=== PATIENT | female | born 1945 | race Caucasian/White ===

== ENCOUNTER 2017-01-17 13:25 | Emergency (ER) | payer OTHER, BC ==
[2017-01-17 13:32] VITALS: BP 160/52; PULSE 68; TEMP 98.1; BMI 35.5
--- NOTE | 2017-01-17 14:10 | PDOC ---
History of Present Illness - General History Source: Patient Exam Limitations: No Limitations - History of Present Illness Initial Comments: 01/17/17 14:14 The patient is a 71 year old female presenting with her , with a significant past medical history of Hypertension, diabetes, chronic renal insufficiency, MVP, hypothyroidism, who presents to the emergency department with left eye burning since yesterday. She also reports swelling, exudate and itchiness from the eye. On presentation the eye is not red and there is no current itching. It is noted that the patient's left eye is 20/30. She denies any blurry vision or any change in vision. The patient denies headache and dizziness. Denies fever, chills, nausea, vomit, diarrhea and constipation. Allergies: Doclifenac Past surgical history: LAMINECTOMY-1970, LEFT KNEE ARTHROSCOPY-10/09, LUNG NODULE REMOVED-01/2013 Social history: No alcohol, tobacco or drug use reported <Jozef Rene - Last Filed: 01/17/17 14:14> <Jerad Sandoval - Last Filed: 01/17/17 19:01> - General Chief Complaint: Eye Problem Stated Complaint: LEFT EYE BURNING, ITCHY, FB SENSATION Time Seen by Provider: 01/17/17 14:09 Past History <Jozef Rene - Last Filed: 01/17/17 14:14> - Past Medical History Anemia: No Asthma: No Cancer: Yes (LEFT LUNG NODULE) Cardiac Disorders: Yes (MVP, PALPITATIONS) CVA: No COPD: No CHF: No Dementia: No Diabetes: Yes (NIDDM-DX 2012) GI Disorders: Yes (GERD) Disorders: Yes (NIGHT FREQUENCY) HTN: Yes Hypercholesterolemia: Yes (DIET CONTROLLED) Liver Disease: No Seizures: No Thyroid Disease: Yes (HYPOTHYROIDISM) - Surgical History Abdominal Surgery: No Appendectomy: No Cardiac Surgery: No Cholecystectomy: Yes (LAP CHOLEY-10/2003) Lung Surgery: Yes (LUNG NODULE REMOVED-01/2013) Neurologic Surgery: No Orthopedic Surgery: Yes (LAMINECTOMY-1970, LEFT KNEE ARTHROSCOPY-10/09) - Psycho/Social/Smoking Cessation Hx Anxiety: No Suicidal Ideation: No Smoking History: Former smoker Have you smoked in the past 12 months: No Number of Cigarettes Smoked Daily: 20 If you are a former smoker, when did you quit?: 1964 Information on smoking cessation initiated: No Hx Alcohol Use: No Drug/Substance Use Hx: No Substance Use Type: None Hx Substance Use Treatment: No <Jerad Sandoval - Last Filed: 01/17/17 19:01> - Past Medical History Allergies/Adverse Reactions: Allergies Allergy/AdvReac Type Severity Reaction Status Date / Time diclofenac AdvReac ELEVATED Verified 01/17/17 13:28 LIVER ENZYMES Home Medications: Ambulatory Orders Folic Acid - 1 mg PO DAILY 08/13/14 Levothyroxine [Synthroid -] 75 mcg PO DAILY 08/13/14 Metformin HCl [Metformin HCl ER] 500 mg PO BID 08/13/14 Metoprolol Tartrate [Lopressor -] 25 mg PO BID 08/13/14 Ciprofloxacin 0.3% Eye Drops [Ciloxan 0.3% Eye Drops -] 4 drop OU Q4H #1 bottle 01/17/17 Ibuprofen 400 mg PO ASDIR 01/17/17 Review of Systems - Review of Systems Able to Perform ROS?: Yes Comments:: 01/17/17 14:15 GENERAL/CONSTITUTIONAL: No fever or chills. No weakness. HEAD, EYES, EARS, NOSE AND THROAT: +Left eye burning, swelling and itchiness. No change in vision. No ear pain or discharge. No sore throat. CARDIOVASCULAR: No chest pain or shortness of breath RESPIRATORY: No cough, wheezing, or hemoptysis. GASTROINTESTINAL: No nausea, vomiting, diarrhea or constipation. GENITOURINARY: No dysuria, frequency, or change in urination. MUSCULOSKELETAL: No joint or muscle swelling or pain. No neck or back pain. SKIN: No rash NEUROLOGIC: No headache, vertigo, loss of consciousness, or change in strength/ sensation. ENDOCRINE: No increased thirst. No abnormal weight change HEMATOLOGIC/LYMPHATIC: No anemia, easy bleeding, or history of blood clots. ALLERGIC/IMMUNOLOGIC: No hives or skin allergy. <Jozef Rene - Last Filed: 01/17/17 14:14> *Physical Exam - Vital Signs Last Vital Signs Temp Pulse Resp BP Pulse Ox 98.1 F 68 18 160/52 98 01/17/17 13:25 01/17/17 13:25 01/17/17 13:25 01/17/17 13:25 01/17/17 13:25 - Physical Exam Comments: 01/17/17 14:16 GENERAL: Awake, alert, and fully oriented, in no acute distress HEAD: No signs of trauma, normocephalic, atraumatic EYES: +Left eye exudate. PERRLA, EOMI, sclera anicteric, conjunctiva clear ENT: Auricles normal inspection, hearing grossly normal, nares patent, oropharynx clear without exudates. Moist mucosa NEUROLOGICAL: Cranial nerves II through XII grossly intact. Normal speech, normal gait, no focal sensorimotor deficits SKIN: Warm, Dry, normal turgor, no rashes or lesions noted. <Jozef Rene - Last Filed: 01/17/17 14:14> - Vital Signs Last Vital Signs Temp Pulse Resp BP Pulse Ox 98.1 F 68 18 160/52 98 01/17/17 13:25 01/17/17 13:25 01/17/17 13:25 01/17/17 13:25 01/17/17 13:25 <Jerad Sandoval - Last Filed: 01/17/17 19:01> *DC/Admit/Observation/Transfer - Attestations Scribe Attestion: 01/17/17 14:16 Documentation prepared by Jozef Rene, acting as biomedical field service engineer for Jerad Sandoval MD <Jozef Rene - Last Filed: 01/17/17 14:14> - Discharge Dispostion Admit: No <Jerad Sandoval - Last Filed: 01/17/17 19:01> Diagnosis at time of Disposition: Hordeolum, Conjunctivitis - Discharge Dispostion Disposition: HOME Condition at time of disposition: Stable - Prescriptions Prescriptions: Ciprofloxacin 0.3% Eye Drops [Ciloxan 0.3% Eye Drops -] 4 drop OU Q4H #1 bottle - Patient Instructions Printed Discharge Instructions: DI for Conjunctivitis, DI for Hordeolum Additional Instructions: also do warm moist compresses Follow up with your Opthalmologist and or PMD.
== END 2017-01-17 14:38 | disposition home or self-care (01) ==
LOC: FER 13:25
DX: H00.016 Hordeolum externum left eye, unspecified eyelid (principal); H11.9 Unspecified disorder of conjunctiva; I10 Essential (primary) hypertension; E11.9 Type 2 diabetes mellitus without complications; N28.9 Disorder of kidney and ureter, unspecified; E03.9 Hypothyroidism, unspecified; I34.1 Nonrheumatic mitral (valve) prolapse; Z85.118 Personal history of other malignant neoplasm of bronchus and lung
CPT/HCPCS: 99283-25

== ENCOUNTER 2018-08-06 18:31 | Observation (INO) | payer OTHER, BC ==
--- NOTE | 2018-08-06 19:11 | PDOC ---
Attending Attestation - Resident Resident Name: Zenaida Robertson - HPI HPI: 08/06/18 20:41 Pt presents to the ED complaining of substernal chest pressure and upper back pain. Also complains of nausea and lighthedness. Had one episode of emesis. also reports diaphoresis and nausea. 08/06/18 20:51 - Physicial Exam PE: 08/06/18 20:51 Agree with resident exam. Patient is alert and oriented and in no acute distress. Lungs are clear. Heart: regular rate and rhythm. Abdomen: soft, non tender, non distended. Neuro: Normal mood and affect. AA ox 3, CN 2-12 grossly intact. 08/06/18 20:55 - Medical Decision Making 08/06/18 20:52 Pt presents to the Ed complaining of chest pain. Symptoms are concerning for ACS. HEART score is 6. EKG shows no evidence of ischemia. Initial troponin is negative. Will admit to medicine for rule out ACS. <Rita Campbell - Last Filed: 08/06/18 20:51> - HPI HPI: 08/06/18 21:02 The patient is a 72-year-old female with past medical history of L. lung nodule , MVP, NIDDM-DX 2012, GERD, HTN, HLD, hypothyroidism presents to the emergency department with lightheadedness and chest pressure. The patient states she was at an art class when an acute onset of lightheadedness presented accompanied with strangeness sensation to the body, diaphoresis (resolved) and chills ( resolved) and chest pressure. The patient reports the chest pressure initially presented to the mid-chest that gradually radiated to the back. The patient states she had a single episode of nonbloody-bilious emesis at home. The patient reports en route EMS gave the patient medication, with reported relief. Denies shortness of breath or respiratory concerns. Allergies: diclofenac Surgical history: Lap Choley (10/2003), Lung nodule removed 01/2013), Laminectomy 1970, and L. knee arthroscopy 10/09). PCP: Chanell Reyes - Medical Decision Making 08/06/18 21:03 Documentation prepared by Jaimee Cooley, acting as durable medical equipment repairer for Rita Campbell MD. <Jaimee Cooley - Last Filed: 08/06/18 21:03>
--- NOTE | 2018-08-06 19:14 | PDOC ---
History of Present Illness - General Chief Complaint: Chest Pain Stated Complaint: CHEST PAIN Time Seen by Provider: 08/06/18 19:10 - History of Present Illness Initial Comments: Kendra Vega is a 72yo with a PMH of HTN, DM, hypothyroid, OA who presents with 3 hours of mid chest tightness, lightheadedness, diaphoresis, nausea and now with mid back tightness. She reports that she was at a painting class when she became overwhelmingly nauseated, had diffuse sweating, and a general feeling of severe malaise. She was also very lightheaded at the time. She tried to "work through it" during the class did not improve. She eventually drove home. She did not have any vomiting until she tried to drink some florecita israel for her nausea; she did have a small episode of emesis following that. The chest tightness and sweating eventually mostly resolved, but she started to have tightness in her mid back, between the shoulder blades. Ms Vega was concerned and called an ambulance to come to the hospital. She was instructed to chew 4 baby aspirin, which she did, but she had another small episode of emesis following that. She reports that she was feeling well prior to about 4pm today. She "cannot remember the last time [she] was sick" and has felt fine recently, eating and drinking normally, no fevers or chills. Past History - Past Medical History Allergies/Adverse Reactions: Allergies Allergy/AdvReac Type Severity Reaction Status Date / Time diclofenac AdvReac ELEVATED Verified 01/17/17 13:28 LIVER ENZYMES Home Medications: Ambulatory Orders Levothyroxine [Synthroid -] 75 mcg PO DAILY 08/13/14 Metformin HCl [Metformin HCl ER] 500 mg PO BID 08/13/14 Metoprolol Tartrate [Lopressor -] 25 mg PO BID 08/13/14 Cimetidine 400 mg PO HS 08/06/18 Glipizide [Glipizide ER] 2.5 mg PO 08/06/18 Anemia: No Asthma: No Cancer: Yes (LEFT LUNG NODULE) Cardiac Disorders: Yes (MVP, PALPITATIONS) CVA: No COPD: No CHF: No Dementia: No Diabetes: Yes (NIDDM-DX 2012) GI Disorders: Yes (GERD) Disorders: Yes (NIGHT FREQUENCY) HTN: Yes Hypercholesterolemia: Yes (DIET CONTROLLED) Liver Disease: No Seizures: No Thyroid Disease: Yes (HYPOTHYROIDISM) - Surgical History Abdominal Surgery: No Appendectomy: No Cardiac Surgery: No Cholecystectomy: Yes (LAP CHOLEY-10/2003) Lung Surgery: Yes (LUNG NODULE REMOVED-01/2013) Neurologic Surgery: No Orthopedic Surgery: Yes (LAMINECTOMY-1970, LEFT KNEE ARTHROSCOPY-10/09) - Suicide/Smoking/Psychosocial Hx Smoking History: Never smoked Have you smoked in the past 12 months: No Number of Cigarettes Smoked Daily: 20 If you are a former smoker, when did you quit?: 1964 Information on smoking cessation initiated: No Hx Alcohol Use: No Drug/Substance Use Hx: No Substance Use Type: None Hx Substance Use Treatment: No Review of Systems - Review of Systems Comments:: General: No fevers, no chills, no weight or appetite change, no malaise HEENT: No changes in vision, no changes in hearing, no congestion, no sore throat CV: See HPI. No LE edema Pulm: No SOB, no cough, no wheezing GI: +N/V. No change in bowel habits, no melena : No frequency, no urgency, no dysuria Musc: +Mid-back tightness. No joint swelling, no recent injury Skin: No rash, no lesions, no erythema Endo: No excessive thirst, no heat/cold intolerance Heme: No unusual bruising or bleeding, no swollen glands Neuro: No syncope, no numbness/tingling, no focal weakness Vasc: No claudication Psych: No recent change in mood, no SI or HI *Physical Exam - Vital Signs Last Vital Signs Temp Pulse Resp BP Pulse Ox 97.7 F 73 16 165/55 99 08/06/18 18:31 08/06/18 18:31 08/06/18 18:31 08/06/18 18:31 08/06/18 18:31 - Physical Exam Comments: General: Comfortable, no acute distress HEENT: PERRL, EOMI, MMM, voice normal, normal neck ROM, no LAD Cards: RRR, no murmur appreciated Pulm: Comfortable on room air, clear to auscultation bilaterally Abd: Soft, nondistended. Mild epigastric discomfort. : No CVA tenderness Ext: Atraumatic. No LE edema. ROM intact. Strength 5/5 and equal bilaterally Vasc: Extremities WWP. Palpable radial and pedal pulses bilaterally Neuro: A&Ox3, CN grossly intact, normal speech, motor/sensory grossly intact and symmetric Psych: Mood appropriate to situation Heart Score/ECG Review - History History: Highly suspicious - Electrocardiogram EKG: Normal - Age Age: >/= 65 - Risk Factors Risk Factors Heart Score: Yes Hx Hypertension, Yes Hx Diabetes, Yes Hx Obesity Based on the list above the patient has:: >/=3 risk factors or Hx atherosclerotic disease - ECG Intrepretation Rhythm: Regular Rhythm - [place]: Normal ED Treatment Course - LABORATORY CBC & Chemistry Diagram: 08/06/18 19:40 08/06/18 19:40 Medical Decision Making - Medical Decision Making 08/06/18 19:25 Kendra Vega is a 72yo woman with a PMH of HTN, DM, hypothyroid who presents with 3 hours of chest tightness, diaphoresis, nausea/vomiting, lightheadedness and mid-back tightness. - Concern for ACS. EKG completed, no abnormalities. Workup ordered including CBC , CMP, mag, trop, lipase, CXR, UA. - ASA already taken prior to EMS arrival at her home - Exam currently reassuring, no longer sweating, pain nearly resolved - Zofran ordered for continued nausea - Differential also includes gastritis, GERD, viral illness. Low suspicion for dissection given history and exam though she does report back pain. Low suspicion for abdominal pathology such as pancreatitis given lack of abdominal pain, abrupt onset, resolution of most symptoms. 08/06/18 20:35 - Labs completed. Notable for trop 0.3, WBC 10, Cr 1.4 (at baseline). - CK 166, CK-MB 14.66 and CK index 8.8 - CXR without acute pathology. - Will admit for ACS rule out. Page to Dr Luis for admission. Discussed with Dr Campbell. *DC/Admit/Observation/Transfer Diagnosis at time of Disposition: Chest pain Qualifiers: Chest pain type: unspecified Qualified Code(s): R07.9 - Chest pain, unspecified - Discharge Dispostion Condition at time of disposition: Stable Decision to Admit order: Yes - Referrals - Patient Instructions - Post Discharge Activity
[2018-08-06] MEDS ORDERED: ONDANSETRON 4 MG/2 ML VIAL IVPUSH ONE (19:29)
[2018-08-06] MEDS ORDERED: ONDANSETRON 4 MG/2 ML VIAL ONE (19:32)
[2018-08-06 20:03] LABS: URINE APPEARANCE CLEAR; URINE BILIRUBIN NEGATIVE (<2.0 mg/dL); URINE COLOR STRAW; URINE GLUCOSE (UA) 2+ (NEGATIVE); URINE KETONE NEGATIVE (NEGATIVE); URINE LEUK ESTERASE NEGATIVE (NEGATIVE); URINE NITRITE NEGATIVE (NEGATIVE); URINE PROTEIN NEGATIVE (NEGATIVE); URINE UROBILINOGEN NEGATIVE mg/dL (0.2-1.0)
[2018-08-06 20:06] LABS: BASO % 1.2 % (0-2.0); EOS % 1.1 % (0-4.5); HEMATOCRIT 36.4 % (32.4-45.2); HEMOGLOBIN 12.3 GM/dL (10.7-15.3); MCH 28.7 pg (25.7-33.7); MCHC 33.9 g/dl (32.0-36.0); MEAN CELL VOLUME 84.6 fl (80-96); MONO % 2.4 % (3.8-10.2); NEUT % 83.3 % (42.8-82.8); PLATELET COUNT 291 K/MM3 (134-434); RDW 15.9 % (11.6-15.6); WHITE BLOOD COUNT 10.1 K/mm3 (4.0-10.0)
[2018-08-06 20:14] LABS: INR 1.13 (0.83-1.09); PROTHROMBIN TIME (PATIENT) 12.8 SEC (9.7-13.0)
[2018-08-06 20:24] LABS: ALBUMIN 3.8 g/dl (3.4-5.0); ANION GAP 10 MMOL/L (8-16); BILIRUBIN,TOTAL 0.4 mg/dL (0.2-1.0); BLOOD UREA NITROGEN 29 mg/dL (7-18); CALCIUM 8.5 mg/dL (8.5-10.1); CHLORIDE 106 mmol/L (98-107); CO2 25 mmol/L (21-32); CREATININE 1.3 mg/dL (0.55-1.02); GLUCOSE,RANDOM 197 mg/dL (74-106); LIPASE 146 U/L (73-393); MAGNESIUM 2.1 mg/dL (1.8-2.4); POTASSIUM 4.4 mmol/L (3.5-5.1); SGOT/AST 26 U/L (15-37); SGPT/ALT 31 U/L (12-78); SODIUM 141 mmol/L (136-145); TOT PROT 7.1 g/dl (6.4-8.2)
[2018-08-06 20:27] LABS: ALK PHOS 142 U/L (45-117)
[2018-08-06] MEDS ORDERED: ATORVASTATIN CA 10 MG TABLET (FP) ONE (23:14)
[2018-08-06] MEDS ORDERED: METOPROLOL TARTRATE 50 MG TABLET (FP) ONE (23:14)
[2018-08-06] MEDS ORDERED: RANITIDINE HCL 150 MG TABLET (FP) ONE (23:14)
[2018-08-06] MEDS: ATORVASTATIN CA 10 MG TABLET (FP) GT SCH (23:15)
[2018-08-06] MEDS: METOPROLOL TARTRATE 50 MG TABLET (FP) PO SCH (23:15)
[2018-08-06] MEDS: RANITIDINE HCL 150 MG TABLET (FP) PO SCH (23:15)
[2018-08-07] MEDS ORDERED: LEVOTHYROXINE NA 75 MCG TABLET (FP) GT SCH (07:00)
[2018-08-07] MEDS ORDERED: ONDANSETRON 4 MG/2 ML VIAL IVPUSH ONE (07:13)
[2018-08-07] MEDS ORDERED: LEVOTHYROXINE NA 25 MCG TABLET (FP) ONE (07:19)
[2018-08-07] MEDS ORDERED: ONDANSETRON 4 MG/2 ML VIAL ONE (07:20)
[2018-08-07] MEDS: INSULIN SLIDING SCALE (NOVOLOG) 1 VIAL SQ SCH ×4 (07:36→21:14)
--- NOTE | 2018-08-07 08:57 | HP ---
Admitting History and Physical - Admission Chief Complaint: presternal chest pain associated with nausea, radiating in the interscapular area,. was followed by vomiting and it lasted for 5 hours. the symptoms were not associated with dyspnea or palpitations History of Present Illness: 72 yo female with PMH of DM type 2 ,with a HbA1 C less the 6 presented to ER for presternal chest pain. The patient took in the morning her Glucophage and had a small meal, followed by a couple of rice balls for lunch. Later on she developed nausea, and retrosternal chest pain. She took 4 tablets of aspirin and shortly after that she vomited. Her chest pain was radiating in the interscapular area and lasted approximately 5 hours. The patient denied dyspnea or palpitations. 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 Cardiovascular: Yes: HTN Pulmonary: Yes: Other (lung cancer, S/p wedge resection) Gastrointestinal: Yes: Other (GERD) - Smoking History Smoking history: Never smoked Have you smoked in the past 12 months: No Aproximately how many cigarettes per day: 20 If you are a former smoker, when did you quit?: 1963 - Alcohol/Substance Use Hx Alcohol Use: No Home Medications - Allergies Allergies/Adverse Reactions: Allergies Allergy/AdvReac Type Severity Reaction Status Date / Time diclofenac AdvReac ELEVATED Verified 01/17/17 13:28 LIVER ENZYMES - Home Medications Home Medications: Ambulatory Orders Levothyroxine [Synthroid -] 75 mcg PO DAILY 08/13/14 Metformin HCl [Metformin HCl ER] 500 mg PO BID 08/13/14 Metoprolol Tartrate [Lopressor -] 25 mg PO BID 08/13/14 Cimetidine 400 mg PO HS 08/06/18 Glipizide [Glipizide ER] 2.5 mg PO 08/06/18 Review of Systems - Review of Systems Constitutional: reports: No Symptoms Eyes: reports: No Symptoms HENT: reports: No Symptoms Cardiovascular: reports: Chest Pain (retrosternal) Gastrointestinal: reports: Nausea, Vomiting Physical Examination Vital Signs: Vital Signs Temperature 98.0 F 08/07/18 07:11 Pulse Rate 60 08/07/18 07:11 Respiratory Rate 16 08/07/18 07:11 Blood Pressure 128/53 08/07/18 07:11 O2 Sat by Pulse Oximetry (%) 99 08/07/18 07:11 Constitutional: Yes: No Distress, Calm Eyes: Yes: Conjunctiva Clear, EOM Intact HENT: Yes: Atraumatic, Normocephalic Neck: Yes: Supple, Trachea Midline Cardiovascular: Yes: Regular Rate and Rhythm, S1, S2 Respiratory: Yes: Regular, CTA Bilaterally Gastrointestinal: Yes: Normal Bowel Sounds, Soft, Vomiting, Other (nausea). No : Abdomen, Obese, Hepatomegaly, Splenomegaly Labs: CBC, BMP 08/06/18 19:40 08/06/18 19:40 Imaging - Results Chest X-ray: Other (no cardiomegaly, no pleural effusion, no infiltrate) EKG: Other (nsr, 63 b/min, REJI, , normal [place] ibntyerval, QRS axis at 0 degrees, LVH, non specific ST-T invesrcion) Problem List - Problems (1) Chest pain Assessment/Plan: cardiac enzymes serially ASA EKG monitoring Code(s): R07.9 - CHEST PAIN, UNSPECIFIED Qualifiers: Chest pain type: unspecified Qualified Code(s): R07.9 - Chest pain, unspecified (2) Diabetes mellitus Assessment/Plan: check BS, HBa1 C is less then 6 possible hypoglycemia yesterday due to poor oral intake ? while taking Metformin ? hold Metformin for now Code(s): E11.9 - TYPE 2 DIABETES MELLITUS WITHOUT COMPLICATIONS Qualifiers: Diabetes mellitus type: type 2 (3) GERD (gastroesophageal reflux disease) Assessment/Plan: add Protonix Code(s): K21.9 - GASTRO-ESOPHAGEAL REFLUX DISEASE WITHOUT ESOPHAGITIS (4) Lung cancer Assessment/Plan: left lung, s/p left upper lobe wedge resection Code(s): C34.90 - MALIGNANT NEOPLASM OF UNSP PART OF UNSP BRONCHUS OR LUNG
[2018-08-07] MEDS: RANITIDINE HCL 150 MG TABLET (FP) PO SCH ×2 (10:26→21:09)
[2018-08-07] MEDS: METOPROLOL TARTRATE 50 MG TABLET (FP) PO SCH ×3 (10:26→21:10)
[2018-08-07] MEDS: QUINAPRIL HCL 5 MG TABLET (FP) PO SCH ×2 (10:27→10:33)
[2018-08-07] MEDS ORDERED: PANTOPRAZOLE 40 MG TABLET (FP) ONE (10:28)
[2018-08-07] MEDS: ASPIRIN COATED 81 MG TABLET.EC PO SCH (10:28)
[2018-08-07] MEDS ORDERED: ASPIRIN COATED 81 MG TABLET.EC ONE (10:28)
[2018-08-07] MEDS: PANTOPRAZOLE 40 MG TABLET (FP) PO SCH (10:28)
[2018-08-07 20:33] VITALS: BMI 31.1
[2018-08-07] MEDS: ATORVASTATIN CA 10 MG TABLET (FP) GT SCH (21:09)
[2018-08-08] MEDS: LEVOTHYROXINE NA 75 MCG TABLET (FP) PO SCH (06:05)
[2018-08-08] MEDS: INSULIN SLIDING SCALE (NOVOLOG) 1 VIAL SQ SCH ×4 (06:05→21:24)
[2018-08-08] MEDS ORDERED: PT OWN MED DRAWER 7, Y5N ONE ×2 (06:52→10:23)
[2018-08-08 07:10] LABS: BASO % 1.3 % (0-2.0); EOS % 4.3 % (0-4.5); HEMATOCRIT 34.5 % (32.4-45.2); HEMOGLOBIN 11.2 GM/dL (10.7-15.3); LYMPH % 37.7 % (8-40); MCH 27.4 pg (25.7-33.7); MCHC 32.6 g/dl (32.0-36.0); MEAN CELL VOLUME 84.2 fl (80-96); MONO % 6.3 % (3.8-10.2); NEUT % 50.4 % (42.8-82.8); PLATELET COUNT 248 K/MM3 (134-434); RBC 4.09 M/mm3 (3.60-5.2); RDW 15.8 % (11.6-15.6); WHITE BLOOD COUNT 6.5 K/mm3 (4.0-10.0)
[2018-08-08 07:15] LABS: ALBUMIN 3.1 g/dl (3.4-5.0); ANION GAP 3 MMOL/L (8-16); BLOOD UREA NITROGEN 27 mg/dL (7-18); CALCIUM 8.1 mg/dL (8.5-10.1); CHLORIDE 110 mmol/L (98-107); CO2 30 mmol/L (21-32); GLUCOSE,RANDOM 109 mg/dL (74-106); POTASSIUM 5.2 mmol/L (3.5-5.1); SODIUM 143 mmol/L (136-145)
[2018-08-08 07:22] LABS: ALK PHOS 116 U/L (45-117); BILIRUBIN,TOTAL 0.4 mg/dL (0.2-1.0); CREATININE 1.4 mg/dL (0.55-1.02); SGOT/AST 7 U/L (15-37); SGPT/ALT 25 U/L (12-78)
--- NOTE | 2018-08-08 10:31 | EKG ---
Test Reason : Blood Pressure : / mmHG Vent. Rate : 045 BPM Atrial Rate : 045 BPM P-R Int : 164 ms QRS Dur : 082 ms QT Int : 486 ms P-R-T Axes : 033 006 025 degrees QTc Int : 420 ms SINUS BRADYCARDIA OTHERWISE NORMAL ECG WHEN COMPARED WITH ECG OF 06-AUG-2018 23:48, NO SIGNIFICANT CHANGE WAS FOUND Confirmed by DOMI GRAYSON MD ([id number]) on 08/08/2018 10:31:24 AM Referred By: Shilpa STEINER Confirmed By:DOMI GRAYSON MD
[2018-08-08] MEDS: RANITIDINE HCL 150 MG TABLET (FP) PO SCH ×2 (10:34→21:24)
[2018-08-08] MEDS: ASPIRIN COATED 81 MG TABLET.EC PO SCH (10:34)
[2018-08-08] MEDS: PANTOPRAZOLE 40 MG TABLET (FP) PO SCH (10:34)
[2018-08-08] MEDS: QUINAPRIL HCL 5 MG TABLET (FP) PO SCH (10:35)
[2018-08-08] MEDS: METOPROLOL TARTRATE 50 MG TABLET (FP) PO SCH ×2 (10:37→21:24)
--- NOTE | 2018-08-08 10:37 | EKG ---
Test Reason : Blood Pressure : / mmHG Vent. Rate : 050 BPM Atrial Rate : 050 BPM P-R Int : 156 ms QRS Dur : 082 ms QT Int : 464 ms P-R-T Axes : 050 003 029 degrees QTc Int : 423 ms SINUS BRADYCARDIA OTHERWISE NORMAL ECG WHEN COMPARED WITH ECG OF 06-AUG-2018 19:13, NO SIGNIFICANT CHANGE WAS FOUND Confirmed by DOMI GRAYSON MD ([id number]) on 08/08/2018 10:37:29 AM Referred By: Confirmed By:DOMI GRAYSON MD
--- NOTE | 2018-08-08 10:39 | EKG ---
Test Reason : Blood Pressure : / mmHG Vent. Rate : 063 BPM Atrial Rate : 063 BPM P-R Int : 166 ms QRS Dur : 074 ms QT Int : 426 ms P-R-T Axes : 022 000 035 degrees QTc Int : 435 ms NORMAL SINUS RHYTHM MODERATE VOLTAGE CRITERIA FOR LVH, MAY BE NORMAL VARIANT BORDERLINE ECG WHEN COMPARED WITH ECG OF 25-JUN-2011 11:13, NO SIGNIFICANT CHANGE WAS FOUND Confirmed by KENAN RIVERA, DOMI ([id number]) on 08/08/2018 10:38:31 AM Referred By: Confirmed By:DOMI GRAYSON MD
[2018-08-08] MEDS ORDERED: ACETAMINOPHEN 500 MG TABLET (FP) PO PRN (12:53)
--- NOTE | 2018-08-08 13:02 | CONS ---
DATE OF CONSULTATION: 08/08/2018 LOCATION: [facility] REQUESTING PHYSICIAN: Chanell Luis MD CHIEF COMPLAINT: 1. Anterior pressure-like chest pain. 2. Diaphoresis. 3. Nausea and vomiting. HISTORY: The patient is a 72-year-old female with longstanding history of hypertension, vxx-wyfruje-fswwtdler diabetes mellitus, chronic kidney disease, chronic intermittent hyperkalemia, history of palpitations, hypercholesterolemia, history of thyroid disease, history of chest pain syndrome admitted with sudden onset of anterior pressure-like chest pains while she was at a function accompanied by a cold sweat, and the pain radiated to the intrascapular area. The pain was accompanied by nausea and later on had recurring and copious vomiting. Then 911 was called, and she was brought to the emergency room. The pain started around 4 p.m. and slowly subsided by 10 p.m. The patient has had exertional chest pains for several years. Usually occurs while walking briskly or climbing stairs. Relieved by rest. She had been seen on consultation back in December but refused to consider it. There is no history of lightheadedness, dizziness, presyncope, or syncope. She has a history of chronic, intermittent palpitations. None recently. No history of exertional dyspnea, paroxysmal or nocturnal dyspnea, or orthopnea. History of gastroesophageal reflux, and on questioning, she states she ate 2 rice bowls at 1 p.m. PAST MEDICAL HISTORY: As mentioned in the history of present illness. 1. History of probable sleep apnea. 2. History of Meniere disease. 3. 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 4. History of intermittent hyperkalemia partly related to liquorice intake. 5. Peripheral neuropathy. 6. Osteoarthritis of the knees. PAST SURGICAL HISTORY: As mentioned in the history of present illness. 1. Status post wedge resection of carcinoma of the lung. 2. Bilateral cataract extractions and lens implantation. 3. History of Lasik surgery. SOCIAL HISTORY: . Lives with a partner. Has no children. Used to smoke from the age of [age]. Was smoking over 2 packs of cigarettes per day. History of excessive intake of ethanol. Stopped in 1984. Denies excessive use of caffeine. FAMILY HISTORY: Father late 70s related to myocardial infarction. He had COPD and drank excessively. Mother at age 59 related to complications of hepatitis. She has 1 sister who is alive and 86 years of age and suffers from congestive heart failure. ALLERGIES: VOLTAREN causes abnormal liver function tests. The patient also develops abnormal liver function tests if she takes excessive doses of TYLENOL or IBUPROFEN. MEDICATIONS: Prior to admission was on the following medications: 1. Metformin 500 mg p.o. b.i.d. 2. Glipizide dose is uncertain 1 p.o. daily. 3. Metoprolol Tartrate 25 mg p.o. b.i.d. 4. Cimetidine 400 mg p.o. daily. 5. Lipitor 10 mg p.o. daily. 6. Synthroid 75 mg p.o. daily. 7. Vitamin B12 takes 1000 mcg sublingually daily. 8. [place]-3 fatty acid 500 mg p.o. b.i.d. Current medications include: 1. Protonix 40 mg p.o. daily. 2. Zantac 150 mg p.o. daily. 3. Quinapril 2.5 mg p.o. daily. 4. NovoLog via sliding scale. REVIEW OF SYSTEMS: Constitutional: No history of chills, fever, or night sweats. No history of unintentional weight loss. The patient has lost over 20 pounds of weight intentionally. HEENT: The patient had frontal headaches associated with the above-mentioned symptoms. No history of diplopia, blurred vision. No history of epistaxis, hoarseness. History of right ear tinnitus and deafness. Cardiovascular: See history of present illness. Respiratory: See history of present illness. No history of recent cough, expectoration, or hemoptysis. No history of tuberculosis. Gastrointestinal: See history of present illness. No history of abdominal pain or discomfort. No history of melena or hematemesis. No history of change in bowel habits. Neurologic: No history of seizures, syncope, or focal weakness. History of increased somnolence and restlessness at night. Musculoskeletal: History of osteoarthritis of the knees and spine. No myalgias reported. Hematologic: No history of ecchymosis, anemia, or bleeding. Endocrine: See history of present illness. No history of polyuria or polydipsia. Genitourinary: History of stress incontinence. No history of dysuria. Occasional frequency and urgency. No history of hematuria. PHYSICAL EXAMINATION: General: A 72-year-old alert female who is in no acute distress. No pallor, cyanosis, clubbing, or jaundice. Neck: Supple. No jugular venous distention. Carotids are 2+. Upstrokes are normal. No bruits are heard. No thyromegaly is present. Heart: PMI is in the 5th intercostal space. No heaves or thrills. S1, S2 are normal. Nonejection systolic clicks are hard along the left sternal border and apex. No murmur or gallops are heard. Lungs: Clear on auscultation. Abdomen: Soft, protuberant, nontender. No hepatosplenomegaly or palpable masses are felt. Bowel sounds are present. No bruits are heard. Extremities: No calf tenderness or dependent edema. Pulses are equal. DIAGNOSTIC DATA: ECG of August 06: Sinus rhythm, borderline voltage criteria for LVH (aVL), nonspecific ST changes. Repeat ECG reveals sinus bradycardia. Compared to earlier tracing decrease in heart rate. No other major changes were seen. Lab data: CBC August 08, 2018 WBC count 6500, hemoglobin 11.2 g, platelet count 248,000. Normal differential. Chemistry: Sodium 143, potassium 5.2, chloride 110, CO2 is 30, BUN 27, creatinine 1.4 mg/dL. Normal liver function tests. Troponin 0.03. On August 07, 2018, troponin 0.03 and CK 112. X-ray chest impression: No acute pathology. No significant change from June 06, 2013. ECG done on August 07: Sinus rhythm. Compared to ECG of August 06, no major changes were seen. IMPRESSION: 1. Chest pain syndrome, etiology: A. Secondary to coronary artery disease, angina pectoris. B. Gastroesophageal reflux disease. 2. Maa-bornkil-yzqfpauch diabetes mellitus. 3. Chronic kidney disease. 4. Hypertension, hypertensive cardiovascular disease. 5. Hypercholesterolemia. 6. History of intermittent hyperkalemia related to a combination of chronic kidney disease and excessive use of liquorice. 7. Meniere disease. 8. Thyroid disorder. 9. History of vitamin B12 deficiency. 10. History of palpitations, currently in remission. 11. Osteoarthritis of the knees and back. 12. Sleep apnea needs to be excluded. RECOMMENDATIONS: 1. Myoview stress test. 2. Patient should have sleep study following her discharge. 3. Continue medications as outlined except quinapril may need to be discontinued in view of mild elevation of potassium. 4. STAT ECG during episode of chest pain followed by sublingual nitroglycerin. Further suggestions will depend upon the results of the above-mentioned . Thank you for your referral. Yours Sincerely, MARK YADAV M.D. [id number]
--- NOTE | 2018-08-08 19:39 | PN ---
Progress Note, Physician Chief Complaint: The patient complained of headaches earlier today, which resolved with Tylenol 500 mg po once. Her glycemic levels were running low normal and did not receive any insulin. History of Present Illness: Patient with no chest pain today, she complained of some dizziness in am which was followed by headache. She denies any chest pain or palpiitations.Otherwise the patient feels fine. - Current Medication List Current Medications: Active Medications Acetaminophen (Tylenol -) 500 mg PO Q6H PRN PRN Reason: MODERATE PAIN Last Admin: 08/08/18 13:08 Dose: 500 mg Aspirin (Ecotrin -) 81 mg PO DAILY [facility] Last Admin: 08/08/18 10:34 Dose: 81 mg Atorvastatin Calcium (Lipitor -) 10 mg GT HS [facility] Last Admin: 08/07/18 21:09 Dose: 10 mg Insulin Aspart (Novolog Vial Sliding Scale -) [address] [facility]; Protocol Last Admin: 08/08/18 17:56 Dose: Not Given Levothyroxine Sodium (Synthroid -) 75 mcg PO 0700 [facility] Last Admin: 08/08/18 06:05 Dose: 75 mcg Metoprolol Tartrate (Lopressor -) 50 mg PO BID [facility] Last Admin: 08/08/18 10:37 Dose: 50 mg Pantoprazole Sodium (Protonix -) 40 mg PO DAILY [facility] Last Admin: 08/08/18 10:34 Dose: 40 mg Ranitidine HCl (Zantac -) 150 mg PO BID [facility] Last Admin: 08/08/18 10:34 Dose: 150 mg - Objective Vital Signs: Vital Signs Temperature 98.0 F 08/08/18 14:00 Pulse Rate 62 08/08/18 18:00 Respiratory Rate 18 08/08/18 18:00 Blood Pressure 130/78 08/08/18 18:00 O2 Sat by Pulse Oximetry (%) 99 08/07/18 19:50 Constitutional: Yes: No Distress, Calm Eyes: Yes: Conjunctiva Clear, EOM Intact HENT: Yes: Atraumatic, Normocephalic Neck: Yes: Supple, Trachea Midline Cardiovascular: Yes: Regular Rate and Rhythm, S1, S2 Respiratory: Yes: Regular, CTA Bilaterally Gastrointestinal: Yes: Normal Bowel Sounds, Soft, Abdomen, Obese. No: Hepatomegaly, Splenomegaly, Tenderness, Epigastrium Extremities: No: Calf Tenderness Edema: No Peripheral Pulses WNL: Yes Neurological: Yes: Alert, Oriented, Other (no nistagmus,) Psychiatric: Yes: Alert, Oriented Labs: CBC, BMP 08/08/18 05:30 08/08/18 05:30 INR, PTT INR 1.13 (0.83-1.09) H 08/06/18 19:40 Problem List - Problems (1) Chest pain Assessment/Plan: cardiac enzymes serially wee negativeX3 ASA EKG unchanged nuclear stress test in am, according to Cardiology Code(s): R07.9 - CHEST PAIN, UNSPECIFIED Qualifiers: Chest pain type: unspecified Qualified Code(s): R07.9 - Chest pain, unspecified (2) Diabetes mellitus Assessment/Plan: check BS, HBa1 C is less then 6 possible hypoglycemia yesterday due to poor oral intake ? while taking Metformin ? hold Metformin and Gliburide for now The patient may need adjustment of the diabetic medications since she lost weight Code(s): E11.9 - TYPE 2 DIABETES MELLITUS WITHOUT COMPLICATIONS Qualifiers: Diabetes mellitus type: type 2 (3) Meniere's disease in remission Code(s): H81.09 - MENIERE'S DISEASE, UNSPECIFIED EAR (4) GERD (gastroesophageal reflux disease) Assessment/Plan: add Protonix continue Zantac Code(s): K21.9 - GASTRO-ESOPHAGEAL REFLUX DISEASE WITHOUT ESOPHAGITIS (5) Lung cancer Assessment/Plan: left lung, s/p left upper lobe wedge resection Code(s): C34.90 - MALIGNANT NEOPLASM OF UNSP PART OF UNSP BRONCHUS OR LUNG (6) Hypothyroidism Assessment/Plan: continue Synthroid Code(s): E03.9 - HYPOTHYROIDISM, UNSPECIFIED Qualifiers: Hypothyroidism type: acquired Qualified Code(s): E03.9 - Hypothyroidism, unspecified
[2018-08-08] MEDS: ATORVASTATIN CA 10 MG TABLET (FP) GT SCH (21:24)
[2018-08-09] MEDS ORDERED: REGADENOSON 0.4 MG/5 ML PRE-FILLED SYRINGE IVPUSH ONE ×2 (09:49→10:30)
[2018-08-09] MEDS: METOPROLOL TARTRATE 50 MG TABLET (FP) PO SCH ×2 (12:00→22:35)
[2018-08-09] MEDS: ASPIRIN COATED 81 MG TABLET.EC PO SCH (12:21)
[2018-08-09] MEDS: PANTOPRAZOLE 40 MG TABLET (FP) PO SCH (12:21)
[2018-08-09] MEDS: LEVOTHYROXINE NA 75 MCG TABLET (FP) PO SCH (12:22)
[2018-08-09] MEDS: RANITIDINE HCL 150 MG TABLET (FP) PO SCH (12:23)
[2018-08-09] MEDS: INSULIN SLIDING SCALE (NOVOLOG) 1 VIAL SQ SCH ×2 (12:28→18:00)
--- NOTE | 2018-08-09 18:40 | PN ---
Progress Note (short form) - Note Progress Note: 72 year old white female was admitted with chest pains accompanied with diaphoresis and SOB, lexiscan revealed a small and mild reversible defect involving the basal septum, suggestive of stress induced ischemia. normal wall motion and systolic function. Known case of hypertension, NIDDM, hypercholestrolemia, CKD and hypothyroidism. No recurrence of chest pain or discomfort, no SOB. Active Medications Acetaminophen (Tylenol -) 500 mg PO Q6H PRN PRN Reason: MODERATE PAIN Last Admin: 08/08/18 13:08 Dose: 500 mg Aspirin (Ecotrin -) 81 mg PO DAILY [facility] Last Admin: 08/09/18 12:21 Dose: 81 mg Atorvastatin Calcium (Lipitor -) 10 mg GT HS [facility] Last Admin: 08/08/18 21:24 Dose: 10 mg Sodium Chloride (Normal Saline -) 1,000 mls @ 50 mls/hr IV ASDIR [facility] Stop: 08/10/18 18:41 Insulin Aspart (Novolog Vial Sliding Scale -) 1 vial SQ ACHS [facility]; Protocol Last Admin: 08/09/18 18:00 Dose: Not Given Levothyroxine Sodium (Synthroid -) 75 mcg PO 0700 [facility] Last Admin: 08/09/18 12:22 Dose: 75 mcg Metoprolol Tartrate (Lopressor -) 50 mg PO BID [facility] Last Admin: 08/09/18 12:00 Dose: Not Given Pantoprazole Sodium (Protonix -) 40 mg PO DAILY [facility] Last Admin: 08/09/18 12:21 Dose: 40 mg Ranitidine HCl (Zantac -) 150 mg PO BID [facility] Last Admin: 08/09/18 12:23 Dose: 150 mg Patient is in no distress, no pallor, cyanosis or Clubbing. Last Vital Signs Temp Pulse Resp BP Pulse Ox 97 F L 58 L 20 138/53 95 08/09/18 12:00 08/09/18 18:00 08/09/18 18:00 08/09/18 18:00 08/09/18 08:20 NECK: Supple, no JVD, carotids 2+, no bruits heard. HEART: PMI in the 5th ICS, no heaves or thills, no murmur or gallops heard. LUNGS: Clear on auscultation ABDOMEN: Soft, protrubrant, no organomegaly or palpable masses. EXTREMITIES: No calf tenderness or dependent edema. CBC, BMP 08/08/18 05:30 08/08/18 05:30 Laboratory Results - last 24 hr 08/08/18 08/09/18 08/09/18 21:08 05:45 12:27 POC Glucometer 129.36884 124.03765 181.53999 08/09/18 17:36 POC Glucometer 134.40156 IMPRESSION: 1.Chest pain syndrome, compatible with CAD, angina pectoris. 2.Hypertension, HCVD. 3.NIDDM. 4.CKD. 5.HLD. 6.Abnormal myocardial perfusion scan. RECOMMENDATIONS: 1.Transfer to [facility] for cardiac cath, patient and PCP are agreeable. 2. Patient has been advised and alternatives. 3. MRA without contrast has been ordered 4. Arrangements have been made for transfer via paramedics. Time spent 1:15 mins.
[2018-08-09] MEDS ORDERED: SODIUM CHLORIDE 1,000 ML IV SCH (18:45)
[2018-08-09] MEDS ORDERED: METOPROLOL TARTRATE 25 MG TABLET (FP) PO ONE (19:03)
[2018-08-09] MEDS ORDERED: MAGNESIUM HYDROX 2400MG/30ML ORAL SUSPENSION 30 ML CUP PO ONE (19:15)
--- NOTE | 2018-08-09 19:45 | PN ---
Progress Note, Physician Chief Complaint: The patient had her nuclear stress test today which showed small stress induced reversible myocardial defect. The patient is not in any acute distress and tolerated the test well. She will be sent for cardiac cath at [facility]. An MRI/ MRA of the chest will be performed to r/o Aortic dissection. History of Present Illness: Patient with no chest pain today, she complained of some dizziness in am which was followed by headache. She denies any chest pain or palpitations.Otherwise the patient feels fine. - Current Medication List Current Medications: Active Medications Acetaminophen (Tylenol -) 500 mg PO Q6H PRN PRN Reason: MODERATE PAIN Last Admin: 08/08/18 13:08 Dose: 500 mg Aspirin (Ecotrin -) 81 mg PO DAILY [facility] Last Admin: 08/09/18 12:21 Dose: 81 mg Atorvastatin Calcium (Lipitor -) 10 mg GT HS [facility] Last Admin: 08/08/18 21:24 Dose: 10 mg Sodium Chloride (Normal Saline -) 1,000 mls @ 50 mls/hr IV ASDIR [facility] Stop: 08/10/18 18:41 Insulin Aspart (Novolog Vial Sliding Scale -) 1 vial SQ ACHS [facility]; Protocol Last Admin: 08/09/18 18:00 Dose: Not Given Levothyroxine Sodium (Synthroid -) 75 mcg PO 0700 [facility] Last Admin: 08/09/18 12:22 Dose: 75 mcg Metoprolol Tartrate (Lopressor -) 50 mg PO BID [facility] Last Admin: 08/09/18 12:00 Dose: Not Given Pantoprazole Sodium (Protonix -) 40 mg PO DAILY [facility] Last Admin: 08/09/18 12:21 Dose: 40 mg Ranitidine HCl (Zantac -) 150 mg PO BID [facility] Last Admin: 08/09/18 12:23 Dose: 150 mg - Objective Vital Signs: Vital Signs Temperature 97 F L 08/09/18 12:00 Pulse Rate 58 L 08/09/18 18:00 Respiratory Rate 20 08/09/18 18:00 Blood Pressure 138/53 08/09/18 18:00 O2 Sat by Pulse Oximetry (%) 95 08/09/18 08:20 Constitutional: Yes: No Distress, Calm Eyes: Yes: Conjunctiva Clear, EOM Intact HENT: Yes: Atraumatic, Normocephalic Neck: Yes: Supple, Trachea Midline Respiratory: Yes: CTA Bilaterally Gastrointestinal: Yes: Normal Bowel Sounds, Soft, Abdomen, Obese. No: Hepatomegaly, Splenomegaly Genitourinary: No: CVA Tenderness - Left Breast(s): Yes: WNL Musculoskeletal: Yes: WNL. No: Muscle Weakness Extremities: No: Calf Tenderness Edema: No Peripheral Pulses WNL: Yes Neurological: Yes: Alert, Oriented Psychiatric: Yes: Alert, Oriented Labs: CBC, BMP 08/08/18 05:30 08/08/18 05:30 INR, PTT INR 1.13 (0.83-1.09) H 08/06/18 19:40 Problem List - Problems (1) Chest pain Assessment/Plan: cardiac enzymes serially were negativeX3 ASA EKG unchanged nuclear stress test today showed reversible myocardial defect patient agrees to be transferred today for cardiac cath to [facility] Code(s): R07.9 - CHEST PAIN, UNSPECIFIED Qualifiers: Chest pain type: unspecified Qualified Code(s): R07.9 - Chest pain, unspecified (2) Diabetes mellitus Assessment/Plan: DM tyepo 2 with nephropathy and creatinine of 1.4 in May, and during this admission check BS, HBa1 C was 5.6 in May of this year possible hypoglycemia yesterday due to poor oral intake ? while taking Metformin ? hold Metformin and Gliburide for now The patient will need adjustment of the diabetic medication as outpatient Qualifiers: Diabetes mellitus type: type 2 Diabetes mellitus complication status: with kidney complications Diabetes mellitus complication detail: with nephropathy (3) Meniere's disease in remission Assessment/Plan: Antivert as needed Code(s): H81.09 - MENIERE'S DISEASE, UNSPECIFIED EAR Qualifiers: Laterality: left Qualified Code(s): H81.02 - Meniere's disease, left ear (4) GERD (gastroesophageal reflux disease) Assessment/Plan: on Protonix Code(s): K21.9 - GASTRO-ESOPHAGEAL REFLUX DISEASE WITHOUT ESOPHAGITIS (5) Lung cancer Assessment/Plan: left lung, s/p left upper lobe wedge resection Code(s): C34.90 - MALIGNANT NEOPLASM OF UNSP PART OF UNSP BRONCHUS OR LUNG Qualifiers: Laterality: left (6) Hypothyroidism Assessment/Plan: continue Synthroid Code(s): E03.9 - HYPOTHYROIDISM, UNSPECIFIED Qualifiers: Hypothyroidism type: acquired Qualified Code(s): E03.9 - Hypothyroidism, unspecified
[2018-08-09] MEDS ORDERED: ONDANSETRON 4 MG/2 ML VIAL IVPUSH ONE (22:04)
[2018-08-09] MEDS ORDERED: LORazepam 0.5 MG TABLET PO ONE (22:05)
[2018-08-09] MEDS: ATORVASTATIN CA 10 MG TABLET (FP) GT SCH (22:34)
[2018-08-10] MEDS: INSULIN SLIDING SCALE (NOVOLOG) 1 VIAL SQ SCH ×2 (00:38→07:23)
[2018-08-10] MEDS: LEVOTHYROXINE NA 75 MCG TABLET (FP) PO SCH (07:23)
--- NOTE | 2018-08-10 09:11 | PN ---
Progress Note, Physician Chief Complaint: 72 yo diabetic and hypertensive female admitted for presternal chest pain, diaphoresis and nausea. Her cardiac enzymes and EKG's were normal and respectively without changes.The patient had her nuclear stress test yesterday which showed small stress induced reversible myocardial defect. An MRI /MRA of the chest showed normal aortic arch.The patient is not in any acute distress, and anxious. I discussed with the transfer center at [facility] accepting doctor Dr. VIERA, FAX NUMBER [phone]. Patient is being transferred ALS with iv fluids in. They are waiting for last set of labs, last EKG ad possibly ECHO results. History of Present Illness: Patient with no chest pain today, she complained of some dizziness in am which was followed by headache. She denies any chest pain or palpitations.Otherwise the patient feels fine. - Current Medication List Current Medications: Active Medications Acetaminophen (Tylenol -) 500 mg PO Q6H PRN PRN Reason: MODERATE PAIN Last Admin: 08/08/18 13:08 Dose: 500 mg Aspirin (Ecotrin -) 81 mg PO DAILY [facility] Last Admin: 08/09/18 12:21 Dose: 81 mg Atorvastatin Calcium (Lipitor -) 10 mg GT HS [facility] Last Admin: 08/09/18 22:34 Dose: 10 mg Sodium Chloride (Normal Saline -) 1,000 mls @ 50 mls/hr IV ASDIR [facility] Stop: 08/10/18 18:41 Last Admin: 08/09/18 22:33 Dose: Not Given Insulin Aspart (Novolog Vial Sliding Scale -) 1 vial SQ ACHS [facility]; Protocol Last Admin: 08/10/18 07:23 Dose: Not Given Levothyroxine Sodium (Synthroid -) 75 mcg PO 0700 [facility] Last Admin: 08/10/18 07:23 Dose: 75 mcg Metoprolol Tartrate (Lopressor -) 50 mg PO BID [facility] Last Admin: 08/09/18 22:35 Dose: Not Given Pantoprazole Sodium (Protonix -) 40 mg PO DAILY [facility] Last Admin: 08/09/18 12:21 Dose: 40 mg - Objective Vital Signs: Vital Signs Temperature 97.6 F 08/10/18 02:00 Pulse Rate 55 L 08/10/18 02:00 Respiratory Rate 18 08/10/18 02:00 Blood Pressure 147/51 08/10/18 02:00 O2 Sat by Pulse Oximetry (%) 95 08/09/18 22:00 Constitutional: Yes: No Distress, Anxious Eyes: Yes: Conjunctiva Clear, EOM Intact HENT: Yes: Atraumatic, Normocephalic Neck: Yes: Supple, Trachea Midline Cardiovascular: Yes: Regular Rate and Rhythm, S1, S2 Respiratory: Yes: Regular, CTA Bilaterally Gastrointestinal: Yes: Normal Bowel Sounds, Soft, Abdomen, Obese. No: Hepatomegaly, Splenomegaly Breast(s): Yes: WNL Musculoskeletal: Yes: WNL Extremities: No: Calf Tenderness Edema: No Peripheral Pulses WNL: No Neurological: Yes: Alert, Oriented Psychiatric: Yes: Alert, Oriented Labs: CBC, BMP 08/08/18 05:30 08/08/18 05:30 INR, PTT INR 1.13 (0.83-1.09) H 08/06/18 19:40 - ....Imaging MRI: Other (negative for aortic dissection) Problem List - Problems (1) Chest pain Assessment/Plan: cardiac enzymes serially were negativeX3 ASA EKG unchanged MRI/MRA of aortic arch normal nuclear stress test today showed reversible myocardial defect patient agrees to be transferred for cardiac cath to [facility] Code(s): R07.9 - CHEST PAIN, UNSPECIFIED Qualifiers: Chest pain type: unspecified Qualified Code(s): R07.9 - Chest pain, unspecified (2) Diabetes mellitus Assessment/Plan: DM typo 2 with nephropathy and creatinine of 1.4 in May, and during this admission check BS, HBa1 C was 5.6 in May of this year possible hypoglycemia yesterday due to poor oral intake ? while taking Metformin ? hold Metformin and Gliburide for now The patient will need adjustment of the diabetic medication as outpatient Qualifiers: Diabetes mellitus type: type 2 (3) Meniere's disease in remission Assessment/Plan: Antivert as needed Code(s): H81.09 - MENIERE'S DISEASE, UNSPECIFIED EAR (4) GERD (gastroesophageal reflux disease) Assessment/Plan: on Protonix Code(s): K21.9 - GASTRO-ESOPHAGEAL REFLUX DISEASE WITHOUT ESOPHAGITIS (5) Lung cancer Assessment/Plan: left lung, s/p left upper lobe wedge resection Code(s): C34.90 - MALIGNANT NEOPLASM OF UNSP PART OF UNSP BRONCHUS OR LUNG (6) Hypothyroidism Assessment/Plan: continue Synthroid Code(s): E03.9 - HYPOTHYROIDISM, UNSPECIFIED Qualifiers: Hypothyroidism type: acquired Qualified Code(s): E03.9 - Hypothyroidism, unspecified Assessment/Plan 72 yo female admitted chest pain and positive nuclear stress test will be transferred via ALS to [facility] for cardiac catheterization.
[2018-08-10] MEDS ORDERED: SODIUM CHLORIDE 1,000 ML IV SCH (09:15)
[2018-08-10 09:21] LABS: BASO % 1.3 % (0-2.0); EOS % 3.5 % (0-4.5); HEMATOCRIT 37.6 % (32.4-45.2); HEMOGLOBIN 12.1 GM/dL (10.7-15.3); LYMPH % 27.7 % (8-40); MCH 27.2 pg (25.7-33.7); MCHC 32.1 g/dl (32.0-36.0); MEAN CELL VOLUME 84.9 fl (80-96); MEAN PLT VOLUME 8.2 fl (7.5-11.1); MONO % 4.8 % (3.8-10.2); NEUT % 62.7 % (42.8-82.8); PLATELET COUNT 301 K/MM3 (134-434); RBC 4.44 M/mm3 (3.60-5.2); RDW 15.7 % (11.6-15.6); WHITE BLOOD COUNT 8.1 K/mm3 (4.0-10.0)
[2018-08-10 09:48] LABS: ALBUMIN 3.4 g/dl (3.4-5.0); ANION GAP 6 MMOL/L (8-16); BILIRUBIN,TOTAL 0.4 mg/dL (0.2-1.0); BLOOD UREA NITROGEN 24 mg/dL (7-18); CALCIUM 8.5 mg/dL (8.5-10.1); CHLORIDE 109 mmol/L (98-107); CO2 30 mmol/L (21-32); CREATININE 1.2 mg/dL (0.55-1.02); GLUCOSE,RANDOM 135 mg/dL (74-106); POTASSIUM 4.1 mmol/L (3.5-5.1); SGOT/AST 14 U/L (15-37); SGPT/ALT 27 U/L (12-78); SODIUM 145 mmol/L (136-145); TOT PROT 6.4 g/dl (6.4-8.2)
[2018-08-10 09:51] LABS: ALK PHOS 120 U/L (45-117)
[2018-08-10] MEDS: PANTOPRAZOLE 40 MG TABLET (FP) PO SCH (10:10)
[2018-08-10] MEDS: METOPROLOL TARTRATE 50 MG TABLET (FP) PO SCH (10:10)
[2018-08-10] MEDS: ASPIRIN COATED 81 MG TABLET.EC PO SCH (10:10)
[2018-08-10] MEDS ORDERED: LORazepam 0.5 MG TABLET PO ONE (10:15)
--- NOTE | 2018-08-10 10:43 | PN ---
Progress Note (short form) - Note Progress Note: 72 year old white female was admitted with chest pains accompanied with diaphoresis and SOB, lexiscan revealed a small and mild reversible defect involving the basal septum, suggestive of stress induced ischemia. normal wall motion and systolic function. Known case of hypertension, NIDDM, hypercholestrolemia, CKD and hypothyroidism.No chest pain or discomfort, no SOB. Had significant bradycardia at rest. MRI/MRA did reveal an aortic dissection. Patient refused to be transferred to [facility] yesterday and changed her mind and is scheduled for transfer. Active Medications Acetaminophen (Tylenol -) 500 mg PO Q6H PRN PRN Reason: MODERATE PAIN Last Admin: 08/08/18 13:08 Dose: 500 mg Aspirin (Ecotrin -) 81 mg PO DAILY [facility] Last Admin: 08/10/18 10:10 Dose: 81 mg Atorvastatin Calcium (Lipitor -) 10 mg GT HS [facility] Last Admin: 08/09/18 22:34 Dose: 10 mg Sodium Chloride (Normal Saline -) 1,000 mls @ 50 mls/hr IV ASDIR [facility] Stop: 08/10/18 18:41 Last Admin: 08/09/18 22:33 Dose: Not Given Sodium Chloride (Normal Saline -) 1,000 mls @ 50 mls/hr IV ASDIR [facility] Stop: 08/11/18 09:01 Insulin Aspart (Novolog Vial Sliding Scale -) 1 vial SQ ACHS [facility]; Protocol Last Admin: 08/10/18 07:23 Dose: Not Given Levothyroxine Sodium (Synthroid -) 75 mcg PO 0700 [facility] Last Admin: 08/10/18 07:23 Dose: 75 mcg Metoprolol Tartrate (Lopressor -) 50 mg PO BID [facility] Last Admin: 08/10/18 10:10 Dose: 50 mg Pantoprazole Sodium (Protonix -) 40 mg PO DAILY [facility] Last Admin: 08/10/18 10:10 Dose: 40 mg Patient is in no distress, no pallor, cyanosis or Clubbing. Last Vital Signs Temp Pulse Resp BP Pulse Ox 97.6 F 55 L 18 147/51 95 08/10/18 02:00 08/10/18 02:00 08/10/18 02:00 08/10/18 02:00 08/09/18 22:00 NECK: Supple, no JVD, carotids 2+, no bruits heard. HEART: PMI in the 5th ICS, no heaves or thills, no murmur or gallops heard. LUNGS: Clear on auscultation ABDOMEN: Soft, protrubrant, no organomegaly or palpable masses. EXTREMITIES: No calf tenderness or dependent edema. CBC, BMP 08/10/18 09:08 08/10/18 09:08 IMPRESSION: 1.Chest pain syndrome, compatible with CAD, angina pectoris. 2.Hypertension, HCVD. 3.NIDDM. 4.CKD. 5.HLD. 6.Abnormal myocardial perfusion scan. 7.Periods of asymptomatic sinus bradycardia at rest. RECOMMENDATIONS: 1.Transfer to [facility] for cardiac cath. 2. Dose of beta jaylen was reduced. T <Arnoldo Simmons - Last Filed: 08/10/18 10:44> Problem List - Problems (1) Chest pain syndrome Code(s): R07.9 - CHEST PAIN, UNSPECIFIED (2) Coronary artery disease Code(s): I25.10 - ATHSCL HEART DISEASE OF [place] CORONARY ARTERY W/O ANG PCTRS (3) Hypertension Code(s): I10 - ESSENTIAL (PRIMARY) HYPERTENSION (4) Hyperlipidemia Code(s): E78.5 - HYPERLIPIDEMIA, UNSPECIFIED (5) CKD (chronic kidney disease) Code(s): N18.9 - CHRONIC KIDNEY DISEASE, UNSPECIFIED (6) Diabetes mellitus Code(s): E11.9 - TYPE 2 DIABETES MELLITUS WITHOUT COMPLICATIONS Qualifiers: Diabetes mellitus type: type 2 Diabetes mellitus complication status: with kidney complications Diabetes mellitus complication detail: with nephropathy <Vanessa Delgado - Last Filed: 08/10/18 15:50>
[2018-08-10 11:25] VITALS: BP 143/63; PULSE 48; TEMP 98
--- NOTE | 2018-08-10 11:48 | EKG ---
Test Reason : Blood Pressure : / mmHG Vent. Rate : 050 BPM Atrial Rate : 050 BPM P-R Int : 174 ms QRS Dur : 084 ms QT Int : 458 ms P-R-T Axes : 025 -02 018 degrees QTc Int : 417 ms SINUS BRADYCARDIA MODERATE VOLTAGE CRITERIA FOR LVH, MAY BE NORMAL VARIANT BORDERLINE ECG WHEN COMPARED WITH ECG OF 07-AUG-2018 12:38, NO SIGNIFICANT CHANGE WAS FOUND Confirmed by GODWIN RIVERA, LOS ([id number]) on 08/10/2018 11:48:08 AM Referred By: FAM ANGELO Confirmed By:LOS CONNELLY MD
[2018-08-10 14:16] LABS: CK-MM 100 % (97-100)
== END 2018-08-10 11:35 | disposition short-term general hospital (02) ==
LOC: JER 18:31 → JERBED 20:45 → UNDOADMOB 20:45 → INTOOBSV 20:45 → JERBED 22:12 → JICU 08-07 19:59
PROVIDERS: ADMIT Internal Medicine; ATTEND Internal Medicine
PROC: 3E033GC Introduction of Other Therapeutic Substance into Peripheral Vein, Percutaneous Approach (ICD-10-PCS; principal; 2018-08-06)
PROC: 3E0337Z Introduction of Electrolytic and Water Balance Substance into Peripheral Vein, Percutaneous Approach (ICD-10-PCS; 2018-08-06)
DX: R07.9 Chest pain, unspecified (principal); I25.119 Atherosclerotic heart disease of native coronary artery with unspecified angina pectoris; E11.22 Type 2 diabetes mellitus with diabetic chronic kidney disease; I12.9 Hypertensive chronic kidney disease with stage 1 through stage 4 chronic kidney disease, or unspecified chronic kidney disease; N18.9 Chronic kidney disease, unspecified; Z79.84 Long term (current) use of oral hypoglycemic drugs; I11.0 Hypertensive heart disease with heart failure; E78.5 Hyperlipidemia, unspecified; M19.90 Unspecified osteoarthritis, unspecified site; I34.1 Nonrheumatic mitral (valve) prolapse; K21.9 Gastro-esophageal reflux disease without esophagitis; E03.9 Hypothyroidism, unspecified; Z85.118 Personal history of other malignant neoplasm of bronchus and lung; H81.02 Meniere's disease, left ear
CPT/HCPCS: 36415; 71046-TC-FY; 71550-TC; 78452-TC; 80053; 81003; 82550; 82552; 82553; 82962; 83690; 83735; 84484; 85025; 85610; 93005; 93010; 93017; 96374; 96375; 96376; 99285-25; A9502; C8910; G0378; J2785

== ENCOUNTER 2019-06-21 07:14 | Day surgery (SDC) | payer OTHER, BC ==
[2019-06-15 12:45] VITALS: BMI 35.5
[2019-06-21] MEDS ORDERED: PROPOFOL 20 ML ONE ×2 (07:58)
[2019-06-21] MEDS ORDERED: LIDOCAINE HCL/PF 2% SDV 5ML VIAL ONE (07:58)
[2019-06-21 08:57] VITALS: TEMP 97.7
[2019-06-21 09:28] VITALS: BP 133/75; PULSE 72
== END 2019-06-21 09:45 | disposition home or self-care (01) ==
LOC: FASU-ENDO 07:14
PROVIDERS: ATTEND Internal Medicine Gastroenterology
PROC: 0DJD8ZZ Inspection of Lower Intestinal Tract, Via Natural or Artificial Opening Endoscopic (ICD-10-PCS; principal; 2019-06-21 08:29)
DX: Z86.010 Personal history of colon polyps (principal); K57.30 Diverticulosis of large intestine without perforation or abscess without bleeding
CPT/HCPCS: 82962

== ENCOUNTER → 2021-04-22 | Day surgery (SDC) | payer OTHER, BC | END | disposition home or self-care (01) | LOC: JRADIR 10:28 | PROVIDERS: ATTEND Internal Medicine | PROC: 0G9H3ZX Drainage of Right Thyroid Gland Lobe, Percutaneous Approach, Diagnostic (ICD-10-PCS; principal; 2021-04-22) | PROC: BG44ZZZ Ultrasonography of Thyroid Gland (ICD-10-PCS; 2021-04-22) | DX: E04.1 Nontoxic single thyroid nodule (principal) | CPT/HCPCS: 10005; 76536-TC ==

== ENCOUNTER 2022-04-12 16:15 | Inpatient (IN) | payer OTHER, BC ==
[2022-04-12] MEDS ORDERED: ONDANSETRON 4 MG/2 ML VIAL IVPB ONE ×2 (17:17→18:42)
[2022-04-12] MEDS ORDERED: SODIUM CHLORIDE 1,000 ML IV SCH (17:30)
[2022-04-12] MEDS ORDERED: ONDANSETRON 4 MG/2 ML VIAL ONE ×2 (17:32→18:43)
[2022-04-12 18:00] LABS: HEMATOCRIT 34.7 % (32.4-45.2); HEMOGLOBIN 12.1 G/dL (10.7-15.3); MCH 28.8 pg (25.7-33.7); MCHC 34.9 g/dl (32.0-36.0); MEAN CELL VOLUME 82.6 fl (80-96); MEAN PLT VOLUME 8.5 fl (7.5-11.1); PLATELET COUNT 299.4 10^3/uL (134-434); RDW 16.4 % (11.6-15.6); WHITE BLOOD COUNT 8.1 10^3/uL (4.0-10.8)
[2022-04-12 18:10] LABS: ALBUMIN 3.7 g/dl (3.4-5.0); BILIRUBIN,TOTAL 0.6 mg/dl (0.2-1); CALCIUM 8.8 mg/dl (8.5-10); CREATININE 1.1 mg/dl (0.55-1.3); TOT PROT 6.5 g/dl (6.4-8.2)
[2022-04-12] MEDS ORDERED: MECLIZINE HCL 25 MG TABLET (FP) PO ONE (19:35)
[2022-04-12] MEDS ORDERED: MECLIZINE HCL 25 MG TABLET (FP) ONE ×2 (20:10→22:03)
[2022-04-12] MEDS ORDERED: MECLIZINE HCL 25 MG TABLET (FP) PO STA (22:03)
[2022-04-12] MEDS ORDERED: FUROSEMIDE 40 MG TABLET (FP) PO ONE (22:11)
[2022-04-12] MEDS ORDERED: predniSONE 20 MG TABLET (UD) PO ONE (22:12)
[2022-04-12] MEDS ORDERED: ONDANSETRON 4 MG/2 ML VIAL IVPUSH PRN (22:15)
[2022-04-12] MEDS ORDERED: TRIAMTERENE AND HCTZ - 37.5 MG/25 MG CAPSULE PO ONE (22:21)
[2022-04-12] MEDS ORDERED: predniSONE 20 MG TABLET (UD) ONE (22:46)
[2022-04-12] MEDS ORDERED: FUROSEMIDE 40 MG TABLET (FP) ONE (22:51)
[2022-04-13 00:15] VITALS: BMI 32.3
[2022-04-13] MEDS: LEVOTHYROXINE NA 100 MCG TABLET (FP) PO SCH (06:15)
[2022-04-13] MEDS: INSULIN SLIDING SCALE (NOVOLOG) 1 VIAL SQ SCH ×3 (06:16→17:46)
[2022-04-13 08:39] LABS: ALBUMIN 3.6 g/dl (3.4-5.0); BILIRUBIN,TOTAL 0.6 mg/dl (0.2-1); CALCIUM 8.9 mg/dl (8.5-10); CREATININE 1.2 mg/dl (0.55-1.3); TOT PROT 6.4 g/dl (6.4-8.2)
[2022-04-13] MEDS: predniSONE 20 MG TABLET (UD) PO SCH (09:19)
[2022-04-13] MEDS: MECLIZINE HCL 12.5 MG TABLET PO PRN (09:20)
[2022-04-13] MEDS: TRIAMTERENE AND HCTZ - 37.5 MG/25 MG CAPSULE PO SCH (09:20)
[2022-04-13] MEDS: METOPROLOL TARTRATE 25 MG TABLET (FP) PO SCH ×2 (09:20→21:28)
[2022-04-13] MEDS: FAMOTIDINE 20 MG/50 ML IVPB 20 MG/50 ML MG IVPB SCH ×2 (09:21→21:28)
[2022-04-13] MEDS ORDERED: FLUOCINONIDE 0.05% CREAM (15 GM TUBE) TP SCH (10:00)
[2022-04-13] MEDS: KETOCONAZOLE 2% CREAM - 60GM TUBE TP SCH ×2 (15:05→21:29)
[2022-04-13] MEDS: FLUOCINONIDE 0.05% CREAM (15 GM TUBE) TP SCH ×2 (15:06→21:29)
[2022-04-13] MEDS ORDERED: clonazePAM 0.5 MG TABLET PO PRN (22:00)
[2022-04-14] MEDS: KETOCONAZOLE 2% CREAM - 60GM TUBE TP SCH ×3 (05:54→22:17)
[2022-04-14] MEDS: FLUOCINONIDE 0.05% CREAM (15 GM TUBE) TP SCH ×3 (05:54→22:17)
[2022-04-14] MEDS: INSULIN SLIDING SCALE (NOVOLOG) 1 VIAL SQ SCH ×5 (06:00→22:15)
[2022-04-14] MEDS: LEVOTHYROXINE NA 100 MCG TABLET (FP) PO SCH (06:33)
[2022-04-14] MEDS: predniSONE 20 MG TABLET (UD) PO SCH (09:13)
[2022-04-14] MEDS: TRIAMTERENE AND HCTZ - 37.5 MG/25 MG CAPSULE PO SCH (09:13)
[2022-04-14] MEDS: METOPROLOL TARTRATE 25 MG TABLET (FP) PO SCH ×2 (09:13→22:17)
[2022-04-14] MEDS: MECLIZINE HCL 12.5 MG TABLET PO PRN (09:13)
[2022-04-14] MEDS: FAMOTIDINE 20 MG/50 ML IVPB 20 MG/50 ML MG IVPB SCH ×2 (09:13→22:17)
[2022-04-14] MEDS ORDERED: MAGNESIUM HYDROX 2400MG/30ML ORAL SUSPENSION 30 ML CUP PO PRN (09:39)
[2022-04-14] MEDS ORDERED: methylPREDNISolone ACET (DEPO) 80 MG/1 ML VIAL IAR ONE (14:05)
[2022-04-14] MEDS ORDERED: LIDOCAINE HCL 1%, 10 MG/ML (50 mL VIAL) SQ ONE (14:05)
[2022-04-15] MEDS: FLUOCINONIDE 0.05% CREAM (15 GM TUBE) TP SCH ×3 (06:39→21:28)
[2022-04-15] MEDS: KETOCONAZOLE 2% CREAM - 60GM TUBE TP SCH ×3 (06:39→21:28)
[2022-04-15] MEDS: LEVOTHYROXINE NA 100 MCG TABLET (FP) PO SCH (06:40)
[2022-04-15] MEDS: predniSONE 20 MG TABLET (UD) PO SCH (06:41)
[2022-04-15] MEDS: INSULIN SLIDING SCALE (NOVOLOG) 1 VIAL SQ SCH ×4 (06:47→21:27)
[2022-04-15] MEDS ORDERED: LIDOCAINE HCL 1%, 10 MG/ML (50 mL VIAL) SQ ONE (08:00)
[2022-04-15] MEDS ORDERED: methylPREDNISolone ACET (DEPO) 80 MG/1 ML VIAL IAR ONE (08:00)
[2022-04-15] MEDS: MECLIZINE HCL 25 MG TABLET (FP) PO PRN (08:26)
[2022-04-15 08:33] LABS: ALBUMIN 3.6 g/dl (3.4-5.0); BILIRUBIN,TOTAL 0.3 mg/dl (0.2-1); CALCIUM 9.2 mg/dl (8.5-10); CREATININE 1.5 mg/dl (0.55-1.3); TOT PROT 6.2 g/dl (6.4-8.2)
[2022-04-15] MEDS: METOPROLOL TARTRATE 25 MG TABLET (FP) PO SCH ×2 (09:05→21:29)
[2022-04-15] MEDS: FAMOTIDINE 20 MG/50 ML IVPB 20 MG/50 ML MG IVPB SCH (09:05)
[2022-04-15] MEDS: TRIAMTERENE AND HCTZ - 37.5 MG/25 MG CAPSULE PO SCH (09:05)
[2022-04-15] MEDS ORDERED: FLUCONAZOLE 150 MG TABLET PO ONE (21:24)
[2022-04-15] MEDS ORDERED: FAMOTIDINE 20 MG TABLET PO SCH (22:00)
[2022-04-15] MEDS: FAMOTIDINE 20 MG TABLET PO SCH (22:28)
[2022-04-15] MEDS: NYSTATIN 100,000 UNIT/GM TOPICAL CREAM 15 GM TUBE TP SCH (22:41)
[2022-04-16] MEDS: LEVOTHYROXINE NA 100 MCG TABLET (FP) PO SCH (06:20)
[2022-04-16] MEDS: predniSONE 20 MG TABLET (UD) PO SCH (06:20)
[2022-04-16] MEDS: FLUOCINONIDE 0.05% CREAM (15 GM TUBE) TP SCH ×2 (06:21→22:26)
[2022-04-16] MEDS: KETOCONAZOLE 2% CREAM - 60GM TUBE TP SCH ×2 (06:21→22:27)
[2022-04-16] MEDS: INSULIN SLIDING SCALE (NOVOLOG) 1 VIAL SQ SCH ×2 (07:00→22:21)
[2022-04-16] MEDS: MECLIZINE HCL 25 MG TABLET (FP) PO PRN (08:33)
[2022-04-16] MEDS: METOPROLOL TARTRATE 25 MG TABLET (FP) PO SCH ×2 (10:27→23:42)
[2022-04-16] MEDS: TRIAMTERENE AND HCTZ - 37.5 MG/25 MG CAPSULE PO SCH (10:28)
[2022-04-16] MEDS: NYSTATIN 100,000 UNIT/GM TOPICAL CREAM 15 GM TUBE TP SCH ×2 (10:29→22:29)
[2022-04-16] MEDS: FAMOTIDINE 20 MG TABLET PO SCH (21:41)
[2022-04-17] MEDS: MECLIZINE HCL 25 MG TABLET (FP) PO SCH ×2 (01:50→09:10)
[2022-04-17] MEDS: INSULIN SLIDING SCALE (NOVOLOG) 1 VIAL SQ SCH ×3 (06:22→11:27)
[2022-04-17] MEDS: predniSONE 20 MG TABLET (UD) PO SCH (06:23)
[2022-04-17] MEDS: LEVOTHYROXINE NA 100 MCG TABLET (FP) PO SCH (06:23)
[2022-04-17] MEDS: KETOCONAZOLE 2% CREAM - 60GM TUBE TP SCH (06:27)
[2022-04-17] MEDS: FLUOCINONIDE 0.05% CREAM (15 GM TUBE) TP SCH (06:27)
[2022-04-17] MEDS: TRIAMTERENE AND HCTZ - 37.5 MG/25 MG CAPSULE PO SCH (09:08)
[2022-04-17] MEDS: METOPROLOL TARTRATE 25 MG TABLET (FP) PO SCH (09:08)
[2022-04-17] MEDS: NYSTATIN 100,000 UNIT/GM TOPICAL CREAM 15 GM TUBE TP SCH (09:09)
[2022-04-17] MEDS ORDERED: BISACODYL 10 MG SUPP.RECT PR ONE (09:15)
[2022-04-17 13:54] VITALS: BP 153/89; PULSE 59; TEMP 97.5
== END 2022-04-17 15:51 | disposition home or self-care (01) | DRG 149 ==
LOC: FER 16:15 → FM/S 23:35
PROVIDERS: ADMIT Internal Medicine; ATTEND Internal Medicine
PROC: 3E0U33Z Introduction of Anti-inflammatory into Joints, Percutaneous Approach (ICD-10-PCS; principal; 2022-04-12)
PROC: 3E0U3BZ Introduction of Anesthetic Agent into Joints, Percutaneous Approach (ICD-10-PCS; 2022-04-12)
DX: R42 Dizziness and giddiness (principal); E03.9 Hypothyroidism, unspecified; Z85.118 Personal history of other malignant neoplasm of bronchus and lung; E87.5 Hyperkalemia; E11.9 Type 2 diabetes mellitus without complications; M17.12 Unilateral primary osteoarthritis, left knee; E66.9 Obesity, unspecified; Z68.32 Body mass index [BMI] 32.0-32.9, adult; K21.9 Gastro-esophageal reflux disease without esophagitis
CPT/HCPCS: 36415; 70450-TC; 71045-TC-FY; 73560-TC-LT-FY; 80053; 82962; 84484; 85027; 87086; 87186; 93005; 97116-GP; 97161-GP; 99285-25; C9803-CS; U0003; U0005

== ENCOUNTER 2022-04-21 13:31 | Inpatient (IN) | payer OTHER, BC ==
[2022-04-21] MEDS ORDERED: MECLIZINE HCL 25 MG TABLET (FP) PO ONE (13:54)
[2022-04-21] MEDS ORDERED: MECLIZINE HCL 25 MG TABLET (FP) ONE ×2 (14:07→19:18)
[2022-04-21 15:05] LABS: HEMATOCRIT 40.2 % (32.4-45.2); HEMOGLOBIN 13.5 G/dL (10.7-15.3); MCH 27.6 pg (25.7-33.7); MCHC 33.5 g/dl (32.0-36.0); MEAN CELL VOLUME 82.4 fl (80-96); PLATELET COUNT 395.5 10^3/uL (134-434); RBC 4.88 10^6/uL (3.60-5.2); WHITE BLOOD COUNT 14.7 10^3/uL (4.0-10.8)
[2022-04-21 15:07] LABS: ALBUMIN 3.8 g/dl (3.4-5.0); BILIRUBIN,TOTAL 0.6 mg/dl (0.2-1); CALCIUM 9.4 mg/dl (8.5-10); CREATININE 1.4 mg/dl (0.55-1.3)
[2022-04-21 15:13] LABS: EPITHELIAL CELLS FEW /hpf
[2022-04-21] MEDS ORDERED: CALCIUM GLUCONATE 10% - 1,000 MG/10 ML VIAL IVPUSH ONE (15:19)
[2022-04-21] MEDS ORDERED: SODIUM CHLORIDE 0.9% 500 ML INFUS.BAG IV ONE (15:19)
[2022-04-21] MEDS ORDERED: INSULIN REGULAR HUMAN 100 UNITS/ML *VIAL IVPUSH ONE (15:19)
[2022-04-21] MEDS ORDERED: CEFTRIAXONE 1,000 MG in DEXTROSE 5%-WATER - 50 ML IVPB ONE (16:00)
[2022-04-21 16:13] LABS: ADD RBC MORPHOLOGY YES; PLATELET ESTIMATE ADEQUATE
[2022-04-21 16:14] LABS: ANISOCYTOSIS 1+
[2022-04-21] MEDS ORDERED: INSULIN (NOVOLOG) ASPART 100 UNITS/ML 10ML VIAL ONE (16:16)
[2022-04-21] MEDS: MECLIZINE HCL 25 MG TABLET (FP) PO SCH (19:18)
[2022-04-21] MEDS: METOPROLOL TARTRATE 25 MG TABLET (FP) PO SCH ×2 (22:42→22:47)
[2022-04-21] MEDS: FAMOTIDINE 20 MG TABLET PO SCH (22:42)
[2022-04-21] MEDS: INSULIN SLIDING SCALE (NOVOLOG) 1 VIAL SQ SCH (22:54)
[2022-04-22] MEDS: MECLIZINE HCL 25 MG TABLET (FP) PO SCH ×3 (04:52→18:24)
[2022-04-22] MEDS: INSULIN SLIDING SCALE (NOVOLOG) 1 VIAL SQ SCH ×4 (06:00→22:03)
[2022-04-22] MEDS: predniSONE 20 MG TABLET (UD) PO SCH ×2 (06:01→09:24)
[2022-04-22 08:09] LABS: ALBUMIN 3.3 g/dl (3.4-5.0); BILIRUBIN,TOTAL 0.5 mg/dl (0.2-1); CREATININE 1.3 mg/dl (0.55-1.3)
[2022-04-22] MEDS: FUROSEMIDE 20 MG TABLET (FP) PO SCH (09:24)
[2022-04-22] MEDS: METOPROLOL TARTRATE 25 MG TABLET (FP) PO SCH (09:24)
[2022-04-22] MEDS: FAMOTIDINE 20 MG TABLET PO SCH (09:24)
[2022-04-22] MEDS ORDERED: cefTRIAXone SODIUM 1 GM VIAL ONE (11:11)
[2022-04-22] MEDS ORDERED: DEXTROSE 5%-WATER - 50 ML IVPB ONE (11:11)
[2022-04-22] MEDS: CEFTRIAXONE 1 GM in DEXTROSE 5%-WATER - 50 ML IVPB SCH (11:16)
[2022-04-23] MEDS: MECLIZINE HCL 25 MG TABLET (FP) PO SCH ×3 (03:46→21:38)
[2022-04-23] MEDS ORDERED: METOPROLOL TARTRATE 25 MG TABLET (FP) PO ONE (05:00)
[2022-04-23] MEDS: INSULIN SLIDING SCALE (NOVOLOG) 1 VIAL SQ SCH ×4 (06:27→21:38)
[2022-04-23] MEDS ORDERED: cefTRIAXone SODIUM 1 GM VIAL ONE (09:22)
[2022-04-23] MEDS ORDERED: DEXTROSE 5%-WATER - 50 ML IVPB ONE (09:22)
[2022-04-23] MEDS: predniSONE 20 MG TABLET (UD) PO SCH (09:25)
[2022-04-23] MEDS: FUROSEMIDE 20 MG TABLET (FP) PO SCH (09:25)
[2022-04-23] MEDS: FAMOTIDINE 20 MG TABLET PO SCH (09:25)
[2022-04-23] MEDS: METOPROLOL TARTRATE 25 MG TABLET (FP) PO SCH ×2 (09:25→21:38)
[2022-04-23] MEDS: CEFTRIAXONE 1 GM in DEXTROSE 5%-WATER - 50 ML IVPB SCH (09:26)
[2022-04-23 15:59] VITALS: BMI 31.3
[2022-04-24] MEDS: MECLIZINE HCL 25 MG TABLET (FP) PO SCH ×3 (03:56→18:27)
[2022-04-24] MEDS: INSULIN SLIDING SCALE (NOVOLOG) 1 VIAL SQ SCH ×4 (06:14→21:23)
[2022-04-24 08:27] LABS: ALBUMIN 3.4 g/dl (3.4-5.0); BILIRUBIN,TOTAL 0.4 mg/dl (0.2-1); CREATININE 1.7 mg/dl (0.55-1.3)
[2022-04-24] MEDS ORDERED: cefTRIAXone SODIUM 1 GM VIAL ONE (09:25)
[2022-04-24] MEDS ORDERED: DEXTROSE 5%-WATER - 50 ML IVPB ONE (09:25)
[2022-04-24] MEDS: CEFTRIAXONE 1 GM in DEXTROSE 5%-WATER - 50 ML IVPB SCH (09:33)
[2022-04-24] MEDS: FUROSEMIDE 20 MG TABLET (FP) PO SCH (09:33)
[2022-04-24] MEDS: predniSONE 20 MG TABLET (UD) PO SCH (09:33)
[2022-04-24] MEDS: FAMOTIDINE 20 MG TABLET PO SCH (09:34)
[2022-04-24] MEDS: METOPROLOL TARTRATE 25 MG TABLET (FP) PO SCH ×3 (09:34→21:23)
[2022-04-24] MEDS: FLUTICASONE PROP 0.05% 16 GM NASAL SPRAY NS SCH (21:23)
[2022-04-25] MEDS: MECLIZINE HCL 25 MG TABLET (FP) PO SCH ×3 (04:26→20:34)
[2022-04-25] MEDS: LEVOTHYROXINE NA 100 MCG TABLET (FP) GT SCH (06:23)
[2022-04-25] MEDS ORDERED: DEXTROSE 5%-WATER - 50 ML IVPB ONE (09:35)
[2022-04-25] MEDS ORDERED: cefTRIAXone SODIUM 1 GM VIAL ONE (09:35)
[2022-04-25] MEDS: predniSONE 5 MG TABLET (UD) PO SCH (09:41)
[2022-04-25] MEDS: FUROSEMIDE 20 MG TABLET (FP) PO SCH (09:41)
[2022-04-25] MEDS: FLUTICASONE PROP 0.05% 16 GM NASAL SPRAY NS SCH ×2 (09:42→21:45)
[2022-04-25] MEDS: METOPROLOL TARTRATE 25 MG TABLET (FP) PO SCH ×2 (09:42→21:46)
[2022-04-25] MEDS: FAMOTIDINE 20 MG TABLET PO SCH (09:42)
[2022-04-25] MEDS: CEFTRIAXONE 1 GM in DEXTROSE 5%-WATER - 50 ML IVPB SCH (09:43)
[2022-04-25] MEDS: INSULIN SLIDING SCALE (NOVOLOG) 1 VIAL SQ SCH ×4 (09:43→21:45)
[2022-04-26] MEDS: MECLIZINE HCL 25 MG TABLET (FP) PO SCH ×3 (03:14→21:43)
[2022-04-26] MEDS: INSULIN SLIDING SCALE (NOVOLOG) 1 VIAL SQ SCH ×4 (06:37→21:43)
[2022-04-26] MEDS: LEVOTHYROXINE NA 100 MCG TABLET (FP) GT SCH (06:37)
[2022-04-26] MEDS ORDERED: DEXTROSE 5%-WATER - 50 ML IVPB ONE (09:26)
[2022-04-26] MEDS ORDERED: cefTRIAXone SODIUM 1 GM VIAL ONE (09:26)
[2022-04-26] MEDS: FUROSEMIDE 20 MG TABLET (FP) PO SCH (09:32)
[2022-04-26] MEDS: predniSONE 5 MG TABLET (UD) PO SCH (09:36)
[2022-04-26] MEDS: FLUTICASONE PROP 0.05% 16 GM NASAL SPRAY NS SCH ×2 (09:37→21:43)
[2022-04-26] MEDS: METOPROLOL TARTRATE 25 MG TABLET (FP) PO SCH ×2 (09:37→21:44)
[2022-04-26] MEDS: CEFTRIAXONE 1 GM in DEXTROSE 5%-WATER - 50 ML IVPB SCH (09:38)
[2022-04-26] MEDS: FAMOTIDINE 20 MG TABLET PO SCH (09:38)
[2022-04-26] MEDS ORDERED: clonazePAM 0.5 MG TABLET PO PRN (18:58)
[2022-04-27] MEDS: MECLIZINE HCL 25 MG TABLET (FP) PO SCH (06:32)
[2022-04-27] MEDS: INSULIN SLIDING SCALE (NOVOLOG) 1 VIAL SQ SCH ×4 (06:33→22:05)
[2022-04-27] MEDS: LEVOTHYROXINE NA 100 MCG TABLET (FP) GT SCH (06:33)
[2022-04-27] MEDS ORDERED: cefTRIAXone SODIUM 1 GM VIAL ONE (09:18)
[2022-04-27] MEDS ORDERED: DEXTROSE 5%-WATER - 50 ML IVPB ONE (09:18)
[2022-04-27] MEDS: predniSONE 5 MG TABLET (UD) PO SCH (09:21)
[2022-04-27] MEDS: CEFTRIAXONE 1 GM in DEXTROSE 5%-WATER - 50 ML IVPB SCH (09:21)
[2022-04-27] MEDS: FUROSEMIDE 20 MG TABLET (FP) PO SCH (09:21)
[2022-04-27] MEDS: METOPROLOL TARTRATE 25 MG TABLET (FP) PO SCH ×3 (09:21→21:27)
[2022-04-27] MEDS: FAMOTIDINE 20 MG TABLET PO SCH (09:21)
[2022-04-27] MEDS: FLUTICASONE PROP 0.05% 16 GM NASAL SPRAY NS SCH ×2 (09:21→22:01)
[2022-04-27 09:22] LABS: ALBUMIN 3.5 g/dl (3.4-5.0); BILIRUBIN,TOTAL 0.5 mg/dl (0.2-1); CALCIUM 9.1 mg/dl (8.5-10); CREATININE 1.4 mg/dl (0.55-1.3)
[2022-04-27] MEDS: MECLIZINE HCL 25 MG TABLET (FP) PO PRN (16:17)
[2022-04-28] MEDS: LEVOTHYROXINE NA 100 MCG TABLET (FP) GT SCH (06:03)
[2022-04-28] MEDS: INSULIN SLIDING SCALE (NOVOLOG) 1 VIAL SQ SCH ×2 (06:04→12:59)
[2022-04-28 08:17] LABS: ALBUMIN 3.2 g/dl (3.4-5.0); BILIRUBIN,TOTAL 0.4 mg/dl (0.2-1); CALCIUM 8.8 mg/dl (8.5-10); CREATININE 1.4 mg/dl (0.55-1.3); TOT PROT 5.6 g/dl (6.4-8.2)
[2022-04-28 08:32] LABS: HEMATOCRIT 34.2 % (32.4-45.2); HEMOGLOBIN 11.7 G/dL (10.7-15.3); MCH 28.4 pg (25.7-33.7); MCHC 34.1 g/dl (32.0-36.0); MEAN CELL VOLUME 83.3 fl (80-96); MEAN PLT VOLUME 8.7 fl (7.5-11.1); PLATELET COUNT 309.5 10^3/uL (134-434); RBC 4.11 10^6/uL (3.60-5.2); RDW 16.3 % (11.6-15.6)
[2022-04-28] MEDS ORDERED: cefTRIAXone SODIUM 1 GM VIAL ONE (09:14)
[2022-04-28] MEDS ORDERED: DEXTROSE 5%-WATER - 50 ML IVPB ONE (09:14)
[2022-04-28] MEDS: predniSONE 5 MG TABLET (UD) PO SCH (09:22)
[2022-04-28] MEDS: METOPROLOL TARTRATE 25 MG TABLET (FP) PO SCH (09:22)
[2022-04-28] MEDS: FAMOTIDINE 20 MG TABLET PO SCH (09:22)
[2022-04-28] MEDS: CEFTRIAXONE 1 GM in DEXTROSE 5%-WATER - 50 ML IVPB SCH (09:22)
[2022-04-28] MEDS: MECLIZINE HCL 25 MG TABLET (FP) PO PRN ×2 (09:23→15:20)
[2022-04-28] MEDS: FLUTICASONE PROP 0.05% 16 GM NASAL SPRAY NS SCH (09:23)
[2022-04-28] MEDS: FUROSEMIDE 20 MG TABLET (FP) PO SCH (09:24)
[2022-04-28 14:14] VITALS: BP 131/49; PULSE 55; TEMP 98
== END 2022-04-28 16:34 | disposition home or self-care (01) | DRG 149 ==
LOC: FER 13:31 → FM/S 15:25
PROVIDERS: ADMIT Internal Medicine; ATTEND Internal Medicine
DX: H81.02 Meniere's disease, left ear (principal); E87.1 Hypo-osmolality and hyponatremia; N39.0 Urinary tract infection, site not specified; E11.21 Type 2 diabetes mellitus with diabetic nephropathy; E87.5 Hyperkalemia; K21.9 Gastro-esophageal reflux disease without esophagitis; E03.9 Hypothyroidism, unspecified; I34.1 Nonrheumatic mitral (valve) prolapse; Z85.118 Personal history of other malignant neoplasm of bronchus and lung; B96.4 Proteus (mirabilis) (morganii) as the cause of diseases classified elsewhere; E66.9 Obesity, unspecified; Z68.31 Body mass index [BMI] 31.0-31.9, adult
CPT/HCPCS: 36415; 71045-TC-FY; 80053; 81003; 81015; 82962; 84484; 85025; 87086; 87186; 93005; 99285-25; C9803-CS; U0003; U0005

== ENCOUNTER 2022-10-23 11:15 | Emergency (ER) | payer OTHER, BC ==
[2022-10-23] MEDS ORDERED: ACETAMINOPHEN 325 MG TABLET (FP) PO ONE (11:18)
[2022-10-23 11:20] VITALS: BP 135/75; PULSE 80; RESP 20; TEMP 98.3; BMI 33.3
[2022-10-23] MEDS ORDERED: ACETAMINOPHEN 325 MG TABLET (FP) ONE (11:21)
== END 2022-10-23 12:39 | disposition home or self-care (01) ==
LOC: FER 11:15
DX: S69.91XA Unspecified injury of right wrist, hand and finger(s), initial encounter (principal); X50.0XXA Overexertion from strenuous movement or load, initial encounter
CPT/HCPCS: 73090-TC-RT-FY; 73110-TC-RT-FY; 73130-TC-RT-FY; 99283-25

== ENCOUNTER 2024-11-19 04:36 | Inpatient (IN) | payer OTHER, BC ==
[2024-11-19] MEDS ORDERED: KETOROLAC TROMETHAMINE 60 MG/2 ML VIAL ONE (04:49)
[2024-11-19] MEDS ORDERED: CYCLOBENZAPRINE HCL 5 MG TABLET ONE (04:50)
[2024-11-19] MEDS: KETOROLAC TROMETHAMINE 60 MG/2 ML VIAL IM ONE (05:07)
[2024-11-19] MEDS: CYCLOBENZAPRINE HCL 5 MG TABLET PO STA (05:07)
[2024-11-19] MEDS ORDERED: HYDROmorphone HCL/PF 1 MG/ML VIAL ONE (06:40)
[2024-11-19] MEDS: HYDROmorphone HCl 2 MG/ML VIAL IM STA (06:46)
[2024-11-19 10:16] LABS: HEMATOCRIT 32.7 % (32.4-45.2); HEMOGLOBIN 10.6 G/dL (10.7-15.3); MCH 27.9 pg (25.7-33.7); MCHC 32.5 g/dl (32.0-36.0); MEAN CELL VOLUME 85.9 fl (80-96); MEAN PLT VOLUME 9.4 fl (7.5-11.1); PLATELET COUNT 249.4 10^3/uL (134-434); RBC 3.81 10^6/uL (3.60-5.2); RDW 15.9 % (11.6-15.6); WHITE BLOOD COUNT 6.6 10^3/uL (4.0-10.8)
[2024-11-19 10:36] LABS: ALBUMIN 3.6 g/dl (3.4-5.0); ALK PHOS 102 U/L (45-117); ANION GAP 8 mmol/L (4-13); BILIRUBIN,TOTAL 0.5 mg/dl (0.2-1); CALCIUM 8.8 mg/dl (8.5-10.1); CHLORIDE 108 mmol/L (98-107); CO2 24 mmol/L (21-32); CREATININE 1.3 mg/dl (0.6-1.3); GLUCOSE,RANDOM 146 mg/dl (74-106); POTASSIUM 4.5 mmol/L (3.5-5.1); SGOT/AST 40 U/L (15-37); SGPT/ALT 45 U/L (7-52); SODIUM 140 mmol/L (136-145); TOT PROT 5.7 g/dl (6.4-8.2)
[2024-11-19] MEDS ORDERED: GABAPENTIN 100 MG CAPSULE PO SCH (11:45)
[2024-11-19 12:42] VITALS: BMI 31.7
[2024-11-19] MEDS: LIDOCAINE 5% TOPICAL PATCH TP SCH (13:07)
[2024-11-19] MEDS: LOSARTAN POTASSIUM 50 MG TABLET PO SCH (13:07)
[2024-11-19] MEDS: HEPARIN NA (PORCINE) 5,000 UNITS/ML 1ML VIAL SQ SCH (13:07)
[2024-11-19] MEDS: GABAPENTIN 100 MG CAPSULE PO SCH (13:08)
[2024-11-19] MEDS: INSULIN ASPART SLIDING SCALE (NOVOLOG) 1 VIAL SQ SCH (16:53)
[2024-11-19] MEDS: ACETAMINOPHEN 1000 MG/100 ML BAG IVPB PRN (17:00)
[2024-11-19] MEDS: LIDOCAINE PATCH REMOVAL MC SCH (21:49)
[2024-11-20] MEDS: KETOROLAC TROMETHAMINE 15 MG/ML VIAL IVPUSH ONE (00:14)
[2024-11-20] MEDS: LEVOTHYROXINE NA 75 MCG TABLET (FP) PO SCH (06:46)
[2024-11-20 09:22] LABS: ALBUMIN 3.5 g/dl (3.4-5.0); BILIRUBIN,TOTAL 0.5 mg/dl (0.2-1); CALCIUM 8.9 mg/dl (8.5-10.1); CREATININE 1.3 mg/dl (0.6-1.3); MAGNESIUM 1.8 mg/dL (1.8-2.4); PHOSPHOROUS 4.8 (2.5-4.9); POTASSIUM 5.1 mmol/L (3.5-5.1); TOT PROT 5.6 g/dl (6.4-8.2)
[2024-11-20 09:26] LABS: EOS % 5.3 % (0-4.5); HEMATOCRIT 31.4 % (32.4-45.2); HEMOGLOBIN 10.6 GM/dL (10.7-15.3); LYMPH % 28.6 % (8-40); MCH 28.4 pg (25.7-33.7); MCHC 33.9 g/dl (32.0-36.0); MEAN CELL VOLUME 83.7 fl (80-96); MEAN PLT VOLUME 8.8 fl (7.5-11.1); MONO % 6.2 % (3.8-10.2); NEUT % 57.9 % (42.8-82.8); PLATELET COUNT 262 10^3/uL (134-434); RBC 3.75 M/mm3 (3.60-5.2); RDW 15.5 % (11.6-15.6); WHITE BLOOD COUNT 4.4 K/mm3 (4.0-10.0)
[2024-11-20 09:43] LABS: N-TERMINAL BNP 690.1 pg/ml (5-450)
[2024-11-20] MEDS ORDERED: MECLIZINE HCL 25 MG TABLET (FP) PO PRN (09:55)
[2024-11-21] MEDS: ACETAMINOPHEN 1000 MG/100 ML BAG IVPB PRN (03:24)
[2024-11-21] MEDS: MELATONIN 5 MG TABLETS PO PRN (03:24)
[2024-11-21] MEDS: KETOROLAC TROMETHAMINE 15 MG/ML VIAL IVPUSH ONE (06:16)
[2024-11-21] MEDS ORDERED: NAPROXEN 250 MG TABLET PO SCH (10:00)
[2024-11-21] MEDS ORDERED: LISINOPRIL 5 MG TABLET PO SCH (10:00)
[2024-11-21] MEDS: methylPREDNISolone 4 MG TABLET PO ONE (11:01)
[2024-11-21] MEDS: EMPAGLIFLOZIN (JARDIANCE) 10 MG TABLET PO SCH (11:04)
[2024-11-22] MEDS: methylPREDNISolone 4 MG TABLET PO ONE (09:39)
[2024-11-22 15:37] VITALS: BP 149/66; PULSE 77; RESP 18; TEMP 97.9
[2024-11-23] MEDS ORDERED: methylPREDNISolone 4 MG TABLET PO ONE (10:00)
== END 2024-11-22 17:00 | DRG 552 ==
LOC: FER 04:36 → FM/S 11:14 → OBSVTOIN 11:14
PROVIDERS: ATTEND Internal Medicine
DX: M54.41 Lumbago with sciatica, right side (principal); I13.0 Hypertensive heart and chronic kidney disease with heart failure and stage 1 through stage 4 chronic kidney disease, or unspecified chronic kidney disease; I50.30 Unspecified diastolic (congestive) heart failure; M48.00 Spinal stenosis, site unspecified; E03.9 Hypothyroidism, unspecified; K21.9 Gastro-esophageal reflux disease without esophagitis; I25.10 Atherosclerotic heart disease of native coronary artery without angina pectoris; E11.22 Type 2 diabetes mellitus with diabetic chronic kidney disease; N18.9 Chronic kidney disease, unspecified; M47.896 Other spondylosis, lumbar region; E78.5 Hyperlipidemia, unspecified; E66.9 Obesity, unspecified; Z68.31 Body mass index [BMI] 31.0-31.9, adult; Z85.118 Personal history of other malignant neoplasm of bronchus and lung
CPT/HCPCS: 36415; 72131-TC; 80053; 80061; 81003; 82962; 83036; 83735; 83880; 84100; 84439; 84443; 84484; 85025; 85027; 87635; 93005; 93306-TC; 97116-GP; 97162-GP; 99285-25; J0131; J1644